=== PATIENT | female | born 1990 | race Caucasian/White ===

== ENCOUNTER 2018-11-14 01:11 | Emergency (ER) | payer SELFPAY ==
[2018-11-14 01:34] VITALS: BP 123/67; PULSE 89; TEMP 98.2; BMI 47.2
--- NOTE | 2018-11-14 02:34 | PDOC ---
History of Present Illness - General Chief Complaint: Vaginal Sxs Stated Complaint: VAGINAL BLEED/6WEEK Time Seen by Provider: 11/14/18 01:54 Past History - Past Medical History Allergies/Adverse Reactions: Allergies Allergy/AdvReac Type Severity Reaction Status Date / Time No Known Allergies Allergy Verified 03/07/13 13:25 Home Medications: Ambulatory Orders Amox-Tr/K Cl [Augmentin 875Mg Tablet] 1 tab PO BID #20 tablet 03/07/13 Ibuprofen [Motrin -] 600 mg PO TID #30 tablet 03/07/13 No Home Medications 0 dose .ROUTE UTDICT 03/07/13 - Suicide/Smoking/Psychosocial Hx Smoking Status: No Smoking History: Unknown if ever smoked Number of Cigarettes Smoked Daily: 0 Hx Alcohol Use: No Drug/Substance Use Hx: No *Physical Exam - Vital Signs Last Vital Signs Temp Pulse Resp BP Pulse Ox 98.2 F 89 20 123/67 100 11/14/18 01:25 11/14/18 01:25 11/14/18 01:25 11/14/18 01:25 11/14/18 01:25 Moderate Sedation - Procedure Monitoring Vital Signs: Procedure Monitoring Vital Signs Temperature 98.2 F 11/14/18 01:25 Pulse Rate 89 11/14/18 01:25 Respiratory Rate 20 11/14/18 01:25 Blood Pressure 123/67 11/14/18 01:25 O2 Sat by Pulse Oximetry (%) 100 11/14/18 01:25 *DC/Admit/Observation/Transfer - Referrals Referrals: Orville Shaffer MD [Primary Care Provider] - - Patient Instructions - Post Discharge Activity
--- NOTE | 2018-11-14 02:56 | PDOC ---
History of Present Illness <Sugar Bella - Last Filed: 11/14/18 04:22> - History of Present Illness Initial Comments: 11/14/18 02:49 Patient is a 28 y/o G2001 female with no medical history who presents for back pain. She states the pain began yesterday, it is mostly on her right side and radiates down her right leg. She has not taken any medication today to help with the pain. She also reports she has burning when she urinates and feels like she has to go more often. She also noticed blood on the tissue after she wiped. She does not see any blood in the toilet but only on the paper. Patients last was 12 years ago. She reports during that time she also had a kidney infection. Besides that the was uneventful. Patient denies fevers, chills, diarrhea, constipation, chest pain, or nausea. F/U trasnvaginal ultrasound, labs, and culture 11/14/18 04:09 US no abnormalities, Urine unlikely for infection, no kidney damage <Carlene Puga - Last Filed: 11/14/18 04:35> - General Chief Complaint: Vaginal Sxs Stated Complaint: VAGINAL BLEED/6WEEK Time Seen by Provider: 11/14/18 01:54 Past History <Sugar Bella - Last Filed: 11/14/18 04:22> - Suicide/Smoking/Psychosocial Hx Smoking Status: No Smoking History: Unknown if ever smoked Number of Cigarettes Smoked Daily: 0 Hx Alcohol Use: No Drug/Substance Use Hx: No <Carlene Puga - Last Filed: 11/14/18 04:35> - Past Medical History Allergies/Adverse Reactions: Allergies Allergy/AdvReac Type Severity Reaction Status Date / Time No Known Allergies Allergy Verified 11/14/18 04:23 Home Medications: Ambulatory Orders Ibuprofen [Motrin -] 600 mg PO TID #30 tablet 03/07/13 Review of Systems - Review of Systems Constitutional: No: Chills, Fever Respiratory: No: Cough, Shortness of Breath Cardiac (ROS): No: Chest Pain ABD/GI: No: Constipated, Diarrhea, Nausea, Vomiting : Yes: Burning, Dysuria, Hematuria Musculoskeletal: Yes: Back Pain <Carlene Puga - Last Filed: 11/14/18 04:35> *Physical Exam - Vital Signs Last Vital Signs Temp Pulse Resp BP Pulse Ox 98.2 F 89 20 123/67 100 11/14/18 01:25 11/14/18 01:25 11/14/18 01:25 11/14/18 01:25 11/14/18 01:25 <Sugar Bella - Last Filed: 11/14/18 04:22> - Vital Signs Last Vital Signs Temp Pulse Resp BP Pulse Ox 98.2 F 89 20 123/67 100 11/14/18 01:25 11/14/18 01:25 11/14/18 01:25 11/14/18 01:25 11/14/18 01:25 - Physical Exam Comments: 11/14/18 02:57 GENERAL: A&O x3, no acute distress HEART: RRR, no rubs murmurs or gallops LUNG: CTAL B/L GI: no abdominal tenderness, soft non distended MSK: positive CVA tenderness R side EXTREMITIES: no pitting edema NEURO: normal gait SKIN: no rashes or lesions noted <Carlene Puga - Last Filed: 11/14/18 04:35> Moderate Sedation - Procedure Monitoring Vital Signs: Procedure Monitoring Vital Signs Temperature 98.2 F 11/14/18 01:25 Pulse Rate 89 11/14/18 01:25 Respiratory Rate 20 11/14/18 01:25 Blood Pressure 123/67 11/14/18 01:25 O2 Sat by Pulse Oximetry (%) 100 11/14/18 01:25 <Sugar Bella - Last Filed: 11/14/18 04:22> - Procedure Monitoring Vital Signs: Procedure Monitoring Vital Signs Temperature 98.2 F 11/14/18 01:25 Pulse Rate 89 11/14/18 01:25 Respiratory Rate 20 11/14/18 01:25 Blood Pressure 123/67 11/14/18 01:25 O2 Sat by Pulse Oximetry (%) 100 11/14/18 01:25 <Carlene Puga - Last Filed: 11/14/18 04:35> ED Treatment Course - LABORATORY CBC & Chemistry Diagram: 11/14/18 02:44 11/14/18 02:44 - ADDITIONAL ORDERS Additional order review: Laboratory Results 11/14/18 11/14/18 11/14/18 02:49 02:44 02:44 Sodium 137 Potassium 3.6 Chloride 106 Carbon Dioxide 24 Anion Gap 7 L BUN 13 Creatinine 0.6 Creat Clearance w eGFR 119.04 Random Glucose 91 Calcium 8.3 L Total Bilirubin 0.3 AST 15 ALT 27 Alkaline Phosphatase 81 Total Protein 7.3 Albumin 3.7 Beta HCG, Quant 1767.7 Urine Color Straw Urine Appearance Clear Urine pH 7.0 Ur Specific [place] 1.009 L Urine Protein Negative Urine Glucose (UA) Negative Urine Ketones Negative Urine Blood Negative Urine Nitrite Negative Urine Bilirubin Negative Urine Urobilinogen Negative Ur Leukocyte Esterase Trace Urine WBC (Auto) 3 Urine RBC (Auto) <1 Ur Epithelial Cells Rare Blood Type A POSITIVE Antibody Screen Negative 11/14/18 02:44 RBC 4.67 MCV 82.5 MCHC 34.7 RDW 14.4 MPV 8.2 <Sugar Bella - Last Filed: 11/14/18 04:22> - LABORATORY CBC & Chemistry Diagram: 11/14/18 02:44 11/14/18 02:44 <Carlene Puga - Last Filed: 11/14/18 04:35> *DC/Admit/Observation/Transfer <Sugar Bella - Last Filed: 11/14/18 04:22> <Carlene Puga - Last Filed: 11/14/18 04:35> Diagnosis at time of Disposition: Early stage of , Type A blood, Rh positive Back pain Qualifiers: Back pain location: back pain in other location Chronicity: acute Qualified Code(s): M54.9 - Dorsalgia, unspecified - Discharge Dispostion Disposition: HOME Condition at time of disposition: Good - Referrals Referrals: Orville Shaffer MD [Primary Care Provider] - Sulma Carrillo MD [Staff Physician] - - Patient Instructions Additional Instructions: You came to the Emergency Department because of new back pain. We looked at your blood and did not find any problems with your hemoglobin ( red blood cells) , liver, or kidneys. We also had imaging of your uterus and it shows a and it does not show any abnormalities. Please make an appointment with your primary care physician and with a OBGYN. You can take tylenol or motrin for the pain. Do not exceed the maximum doses as stated on the bottle. Please return to the Emergency Department if you have any worsening of the pain , headache, dizziness, nausea, chest pain, or shortness of breath. - Post Discharge Activity
[2018-11-14 03:06] LABS: HEMATOCRIT 38.5 % (32.4-45.2); HEMOGLOBIN 13.4 GM/dL (10.7-15.3); MCH 28.6 pg (25.7-33.7); MCHC 34.7 g/dl (32.0-36.0); MEAN CELL VOLUME 82.5 fl (80-96); MEAN PLT VOLUME 8.2 fl (7.5-11.1); PLATELET COUNT 307 K/MM3 (134-434); RBC 4.67 M/mm3 (3.60-5.2); RDW 14.4 % (11.6-15.6); WHITE BLOOD COUNT 10.8 K/mm3 (4.0-10.0)
[2018-11-14 03:11] LABS: URINE APPEARANCE CLEAR; URINE BILIRUBIN NEGATIVE (<2.0 mg/dL); URINE COLOR STRAW; URINE GLUCOSE (UA) NEGATIVE (NEGATIVE); URINE KETONE NEGATIVE (NEGATIVE); URINE LEUK ESTERASE TRACE (NEGATIVE); URINE NITRITE NEGATIVE (NEGATIVE); URINE PROTEIN NEGATIVE (NEGATIVE); URINE UROBILINOGEN NEGATIVE mg/dL (0.2-1.0)
[2018-11-14 03:14] LABS: EPI CELLS RARE /HPF (FEW)
--- NOTE | 2018-11-14 03:44 | PDOC ---
Attending Attestation - Resident Resident Name: EddCarlene - ED Attending Attestation I have performed the following: I have examined & evaluated the patient, The case was reviewed & discussed with the resident, I agree w/resident's findings & plan - HPI HPI: 11/14/18 04:03 Pt comes with vag bleed that she noticed when she wiped after using the bathroom. And she complains of abd pain on the lower abd and she fears that she may have kidney stones. SHe is 6 weeks . Pt has a BOOKKEEPING CLERK across the street. 11/14/18 04:04 - Physicial Exam PE: 11/14/18 04:04 Agree with resident exam. 11/14/18 04:05 Pt has no flank pain and she has bilar lower abd pain and suprapubic pain. - Medical Decision Making 11/14/18 04:02 Patient Name: DARION TOWNSEND THIS IS A PRELIMINARY REPORT FROM [facility] DATE OF SERVICE: 2018-11-14 01:51:27 IMAGES: 75 EXAM: Ultrasound TRANSVAGINAL US PREG HISTORY: 6 weeks with vaginal bleeding COMPARISON: None. FINDINGS: Uterus measures 9.6 cm in length. There is a small intrauterine gestational sac. Mean sac diameter is 4 mm. anatomy and cardiac activity is not identified at this time. Cervix measures 4.2 cm in length and is closed. Ovaries appear normal IMPRESSION: Intrauterine gestational sac without visualized anatomy. This finding may be related to early gestational age and correlation with clinical dates and beta hCG levels is recommended. Follow-up to document normal anatomy and cardiac activity is recommended 11/14/18 04:06 Pt will be asked to follow with her BOOKKEEPING CLERK. She is RH she is stable for discharge.
[2018-11-14 03:59] LABS: ALBUMIN 3.7 g/dl (3.4-5.0); ALK PHOS 81 U/L (45-117); ANION GAP 7 MMOL/L (8-16); BILIRUBIN,TOTAL 0.3 mg/dL (0.2-1); BLOOD UREA NITROGEN 13 mg/dL (7-18); CALCIUM 8.3 mg/dL (8.5-10.1); CHLORIDE 106 mmol/L (98-107); CO2 24 mmol/L (21-32); CREATININE 0.6 mg/dL (0.55-1.3); GLUCOSE,RANDOM 91 mg/dL (74-106); POTASSIUM 3.6 mmol/L (3.5-5.1); SGOT/AST 15 U/L (15-37); SGPT/ALT 27 U/L (13-61); SODIUM 137 mmol/L (136-145); TOT PROT 7.3 g/dl (6.4-8.2)
== END 2018-11-14 04:27 | disposition home or self-care (01) ==
LOC: JER 01:11
DX: O26.891 Other specified pregnancy related conditions, first trimester (principal); M54.5 Low back pain; Z3A.01 Less than 8 weeks gestation of pregnancy; Z67.10 Type A blood, Rh positive
CPT/HCPCS: 36415; 76817-TC; 80053; 81003; 81015; 84702; 85027; 86850; 86900; 86901; 87086; 99282-25

== ENCOUNTER 2018-12-12 13:33 | Emergency (ER) | payer OTHER ==
[2018-12-12 13:41] VITALS: BP 116/60; PULSE 82; TEMP 98.4; BMI 47.8
[2018-12-12] MEDS ORDERED: ACETAMINOPHEN 325 MG TABLET (FP) PO ONE (13:54)
[2018-12-12] MEDS ORDERED: ACETAMINOPHEN 325 MG TABLET (FP) ONE (13:56)
--- NOTE | 2018-12-12 14:09 | PDOC ---
History of Present Illness - General Chief Complaint: Sore Throat Stated Complaint: SORE THROAT Time Seen by Provider: 12/12/18 13:44 History Source: Patient (flori X 4 days) Exam Limitations: No Limitations - History of Present Illness Associated Symptoms: denies: chest pain, cough, fever/chills, headaches, loss of appetite, malaise, nausea/vomiting, rash, shortness of breath, weakness Past History - Travel Traveled outside of the country in the last 30 days: No Close contact w/someone who was outside of country & ill: No - Past Medical History Allergies/Adverse Reactions: Allergies Allergy/AdvReac Type Severity Reaction Status Date / Time No Known Allergies Allergy Verified 12/12/18 13:41 Home Medications: Ambulatory Orders Amoxicillin - [Amoxicillin 500mg Capsule -] 500 mg PO BID 10 Days #20 capsule COPD: No - Reproductive History Therapeutic (s) & number: No - Immunization History Immunization Up to Date: Yes - Suicide/Smoking/Psychosocial Hx Smoking Status: No Smoking History: Never smoked Number of Cigarettes Smoked Daily: 0 Hx Alcohol Use: No Drug/Substance Use Hx: No Review of Systems - Review of Systems Is the patient limited Greek proficient: No Constitutional: No: Chills, Fever HEENTM: Yes: Ear Pain, Throat Pain. No: Ear Discharge, Nose Pain, Nose Congestion, Tinnitus, Hearing Loss, Throat Swelling Respiratory: No: Cough, Shortness of Breath, Productive cough ABD/GI: No: Abdominal Distended, Nausea, Vomiting Neurological: No: Headache *Physical Exam - Vital Signs Last Vital Signs Temp Pulse Resp BP Pulse Ox 98.4 F 82 18 116/60 97 12/12/18 13:38 12/12/18 13:38 12/12/18 13:38 12/12/18 13:38 12/12/18 13:38 - Physical Exam General Appearance: Yes: Nourished HEENT: positive: EOMI, JUVENAL, TMs Normal, Tonsillar Exudate, Tonsillar Erythema ( no DETAIL DRAFTER.). negative: Excessive drooling Respiratory/Chest: positive: Lungs Clear, Normal Breath Sounds Cardiovascular: positive: Regular Rhythm, Regular Rate, S1, S2 Neurologic: positive: metal trimmer II-XII NML intact, Fully Oriented ED Treatment Course - Medications Given in the ED: ED Medications Discontinued Medications Generic Name Dose Route Start Last Admin Trade Name Freq PRN Reason Stop Dose Admin Acetaminophen 650 mg 12/12/18 13:54 12/12/18 13:58 Tylenol - PO 12/12/18 13:55 650 mg ONCE ONE Administration Medical Decision Making - Medical Decision Making 12/12/18 14:08 28y/o F 12wks p/w sorethroat X 4 days, denies cough, f/c, voice hoarseness and drooling. She Reports son had strep a week ago. Pt had no other complaints of abd pain or vag bleed RS sent and pending RS positive abx sent to pharmacy *DC/Admit/Observation/Transfer Diagnosis at time of Disposition: Strep pharyngitis - Discharge Dispostion Disposition: HOME Condition at time of disposition: Stable Decision to Admit order: No - Prescriptions Prescriptions: Amoxicillin - [Amoxicillin 500mg Capsule -] 500 mg PO BID 10 Days #20 capsule - Referrals - Patient Instructions Printed Discharge Instructions: DI for Strep Throat Additional Instructions: Your throat culture was positive for strep Please take antibiotics as prescribed Take tylenol for pain, gargle with salt water Please return to the ER if worsening pain or swelling despite antibiotics. - Post Discharge Activity
== END 2018-12-12 15:05 | disposition home or self-care (01) ==
LOC: JERFT 13:33
DX: O26.891 Other specified pregnancy related conditions, first trimester (principal); O98.811 Other maternal infectious and parasitic diseases complicating pregnancy, first trimester; J02.0 Streptococcal pharyngitis; B95.0 Streptococcus, group A, as the cause of diseases classified elsewhere; Z3A.12 12 weeks gestation of pregnancy
CPT/HCPCS: 87880; 99281-25

== ENCOUNTER 2019-07-03 12:11 | Emergency (ER) | payer OTHER ==
[2019-07-03 12:27] VITALS: BMI 47.8
--- NOTE | 2019-07-03 12:58 | PDOC ---
History of Present Illness - General Chief Complaint: Headache Stated Complaint: 38 WEEKS , HEADACHE, FACE SORE Time Seen by Provider: 07/03/19 12:53 History Source: Patient Exam Limitations: No Limitations Past History - Travel Traveled outside of the country in the last 30 days: No Close contact w/someone who was outside of country & ill: No - Past Medical History Allergies/Adverse Reactions: Allergies Allergy/AdvReac Type Severity Reaction Status Date / Time No Known Allergies Allergy Verified 05/03/19 19:39 Home Medications: Ambulatory Orders Vitamins (Sjr) - 1 tab PO DAILY 05/03/19 Cephalexin Monohydrate [Keflex -] 500 mg PO BID #14 capsule 07/03/19 COPD: No - Reproductive History Therapeutic (s) & number: No - Immunization History Immunization Up to Date: Yes - Psycho Social/Smoking Cessation Hx Smoking Status: No Smoking History: Never smoked Number of Cigarettes Smoked Daily: 0 Hx Alcohol Use: No Drug/Substance Use Hx: No Review of Systems - Review of Systems Able to Perform ROS?: Yes Comments:: 07/03/19 15:18 CONSTITUTIONAL: Absent: fever, chills, diaphoresis, generalized weakness, malaise, loss of appetite HEENT: Absent: rhinorrhea, nasal congestion, throat pain, throat swelling, difficulty swallowing, mouth swelling, ear pain, eye pain, visual Changes CARDIOVASCULAR: Absent: chest pain, loss of consciousness, palpitations, irregular heart rate, peripheral edema RESPIRATORY: Absent: cough, shortness of breath, dyspnea with exertion, orthopnea, wheezing, stridor, hemoptysis GASTROINTESTINAL: Absent: abdominal pain, abdominal distension, nausea, vomiting, diarrhea, constipation, melena, hematochezia GENITOURINARY: Absent: dysuria, frequency, urgency, hesitancy, hematuria, flank pain, genital pain MUSCULOSKELETAL: Absent: myalgia, arthralgia, joint swelling SKIN: Absent: rash, itching, pallor HEMATOLOGIC/IMMUNOLOGIC: Absent: easy bleeding, easy bruising, lymphadenopathy, frequent infections ENDOCRINE: Absent: unexplained weight gain, unexplained weight loss, heat intolerance, cold intolerance NEUROLOGIC: Present: headache Absent: focal weakness or paresthesias, dizziness, unsteady gait, seizure, mental status changes, bladder or bowel incontinence PSYCHIATRIC: Absent: anxiety, depression, suicidal or homicidal ideation, hallucinations. Is the patient limited Slovak proficient: No *Physical Exam - Vital Signs Last Vital Signs Temp Pulse Resp BP Pulse Ox 98 F 83 20 115/76 99 07/03/19 12:21 07/03/19 12:21 07/03/19 12:21 07/03/19 12:21 07/03/19 12:21 - Physical Exam Comments: 07/03/19 15:19 GENERAL: Well developed, well nourished. Awake and alert. No acute distress. HEENT: Normocephalic, atraumatic. PERRLA, EOMI. No conjunctival pallor. Sclera are non- icteric. Moist mucous membranes. Oropharynx is clear. NECK: Supple. Full ROM. No JVD. Carotid pulses 2+ and symmetric, without bruits. No thyromegaly. No lymphadenopathy. CARDIOVASCULAR: Regular rate and rhythm. No murmurs, rubs, or gallops. Distal pulses are 2+ and symmetric. PULMONARY: No evidence of respiratory distress. Lungs clear to auscultation bilaterally. No wheezing, rales or rhonchi. ABDOMINAL: Soft. Non-tender. Non-distended. No rebound or guarding. No organomegaly. Normoactive bowel sounds. MUSCULOSKELETAL Normal range of motion at all joints. No bony deformities or tenderness. No CVA tenderness. EXTREMITIES: No cyanosis. No clubbing. No edema. No calf tenderness. SKIN: Warm and dry. Normal capillary refill. No rashes. No jaundice. NEUROLOGICAL: Alert, awake, appropriate. Cranial nerves 2-12 intact. No deficits to light touch and temperature in face, upper extremities and lower extremities. No motor deficits in the in face, upper extremities and lower extremities. Normoreflexic in the upper and lower extremities. Normal speech. Toes are down- going bilaterally. Gait is normal without ataxia. PSYCHIATRIC: Cooperative. Good eye contact. Appropriate mood and affect. ED Treatment Course - LABORATORY CBC & Chemistry Diagram: 07/03/19 13:00 07/03/19 13:00 Medical Decision Making - Medical Decision Making 07/03/19 15:19 Patient is a 29-year-old female with no past medical history, G2, P1, currently 38 weeks presents to the ER today for headache since . She states that the headache started gradually and got worse. She has been taking Tylenol every 6 hours as directed for pain. She states the headache got better yesterday however it came back this morning so she came to the ER for evaluation. She also notes that her face feels sore, she has mild dizziness and she has lower back pain. Denies fevers, chills, gait changes, weakness, bladder/bowel incontinence, saddle anesthesia, blurry vision, vomiting. A/P: Headache On exam patient is large likely intact with no focal findings. Blood pressure 117/70, LFTs and platelets within normal limits. No edema noted. No protein in the urine. Reglan, IV Tylenol, fluids and magnesium given with relief of symptoms Urine is notable for infection at this time. We will treat with Rocephin. Patient reports headache is completely gone after medication. Will send up to L &D for monitoring. OBGYN: Lizabeth Chacko Discharge - Discharge Information Problems reviewed: Yes Clinical Impression/Diagnosis: Headache Qualifiers: Headache type: unspecified Headache chronicity pattern: acute headache Intractability: not intractable Qualified Code(s): R51 - Headache Condition: Stable Disposition: HOME - Admission No - Follow up/Referral Referrals: Lizabeth Chacko CNM [Certified Nurse Glue Cook] - - Patient Discharge Instructions Patient Printed Discharge Instructions: DI for Headache Additional Instructions: You were evaluated for your headache today Please take Tylenol 500 mg every 6 hours as needed for headache if it recurs. Please take the Keflex twice a day for 1 week for your urinary tract infection. Please follow-up with your DRIFT MINER this week. Drink plenty of fluids Return to the ER for any new or worsening symptoms peer - Post Discharge Activity
[2019-07-03] MEDS ORDERED: SODIUM CHLORIDE 1,000 ML IV STA (12:59)
[2019-07-03] MEDS ORDERED: METOCLOPRAMIDE HCL INJECTION 10 MG/2 ML VIAL IVPB ONE (12:59)
[2019-07-03] MEDS ORDERED: METOCLOPRAMIDE HCL INJECTION 10 MG/2 ML VIAL ONE (13:06)
[2019-07-03 13:11] LABS: BASO % 0.4 % (0-2.0); EOS % 5.6 % (0-4.5); HEMATOCRIT 31.2 % (32.4-45.2); HEMOGLOBIN 10.5 GM/dL (10.7-15.3); LYMPH % 21.9 % (8-40); MCH 23.5 pg (25.7-33.7); MCHC 33.5 g/dl (32.0-36.0); MEAN CELL VOLUME 70.1 fl (80-96); MEAN PLT VOLUME 7.8 fl (7.5-11.1); MONO % 4.1 % (3.8-10.2); PLATELET COUNT 310 K/MM3 (134-434); RBC 4.46 M/mm3 (3.60-5.2); WHITE BLOOD COUNT 9.6 K/mm3 (4.0-10.0)
[2019-07-03 13:36] LABS: ALBUMIN 2.5 g/dl (3.4-5.0); BILIRUBIN,TOTAL 0.2 mg/dL (0.2-1); BLOOD UREA NITROGEN 4.3 mg/dL (7-18); CALCIUM 8.3 mg/dL (8.5-10.1); CREATININE 0.5 mg/dL (0.55-1.3); TOT PROT 6.1 g/dl (6.4-8.2)
[2019-07-03 14:22] LABS: EPI CELLS 8.4 /HPF (0-5/HPF); HYALINE CASTS 4 /lpf (0-8); URINE APPEARANCE CLOUDY; URINE BACTERIA 311.9 /hpf (NEGATIVE); URINE BILIRUBIN NEGATIVE (NEGATIVE); URINE COLOR YELLOW; URINE GLUCOSE (UA) NEGATIVE (NEGATIVE); URINE KETONE NEGATIVE (NEGATIVE); URINE LEUK ESTERASE 3+ (NEGATIVE); URINE NITRITE NEGATIVE (NEGATIVE); URINE PROTEIN NEGATIVE (NEGATIVE); URINE RBC 3 /hpf (0-4); URINE UROBILINOGEN 0.2 mg/dL (0.2-1.0); URINE WBC 34 /hpf (0-5)
[2019-07-03] MEDS ORDERED: ACETAMINOPHEN 1000 MG/100 ML VIAL (NON FORMULARY) IVPB ONE (14:23)
[2019-07-03] MEDS ORDERED: CEFTRIAXONE 1 GM in DEXTROSE 5%-WATER - 100 ML IVPB ONE (14:23)
[2019-07-03] MEDS ORDERED: MAGNESIUM SULF 50% (8.12 MEQ/2 ML-1 GM VIAL) IVPB ONE (14:23)
[2019-07-03] MEDS ORDERED: SODIUM CHLORIDE 0.9% 1000 ML INFUS.BAG IV ONE (14:25)
[2019-07-03] MEDS ORDERED: MAGNESIUM 1GM/D5W - 1 GM/100 ML IVPB IVPB ONE (14:34)
[2019-07-03] MEDS ORDERED: CEFTRIAXONE 1 GM/50 ML BAG ONE (14:34)
[2019-07-03] MEDS ORDERED: ACETAMINOPHEN INJECTION 100 ML IVPB ONE (14:34)
[2019-07-03 16:31] VITALS: BP 131/67; PULSE 65; TEMP 98.4
== END 2019-07-03 16:55 | disposition home or self-care (01) ==
LOC: JER 12:11
PROC: 3E03329 Introduction of Other Anti-infective into Peripheral Vein, Percutaneous Approach (ICD-10-PCS; principal; 2019-07-03)
PROC: 3E033GC Introduction of Other Therapeutic Substance into Peripheral Vein, Percutaneous Approach (ICD-10-PCS; 2019-07-03)
PROC: 3E033GC Introduction of Other Therapeutic Substance into Peripheral Vein, Percutaneous Approach (ICD-10-PCS; 2019-07-03)
PROC: 3E033NZ Introduction of Analgesics, Hypnotics, Sedatives into Peripheral Vein, Percutaneous Approach (ICD-10-PCS; 2019-07-03)
DX: O26.893 Other specified pregnancy related conditions, third trimester (principal); O23.43 Unspecified infection of urinary tract in pregnancy, third trimester; R51 Headache; Z3A.38 38 weeks gestation of pregnancy
CPT/HCPCS: 36415; 76815; 80053; 81003; 85025; 87086; 96365; 96375; 99283-25; J0131; J7030

== ENCOUNTER 2019-07-13 10:05 | Inpatient (IN) | payer OTHER ==
[2019-07-13] MEDS ORDERED: BUTORPHANOL TARTRATE 1 MG/ML VIAL IVPB ONE (10:54)
[2019-07-13] MEDS: ELECTROLYTE-148 SOLN 1,000 ML IV SCH ×2 (10:55→19:30)
[2019-07-13] MEDS ORDERED: AMPICILLIN - 2 GM in SODIUM CHLORIDE 100 ML IVPB ONE (10:56)
--- NOTE | 2019-07-13 11:03 | HP ---
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: Alzheimer's, CVA, Dementia, Migraine, Multiple Sclerosis, Peripheral Neuropathy, Parkinson's, Seizure, Syncope, TIA, Vertigo, Other Cardiovascular: No: AFIB, Aneurysm, Aortic Insufficiency, Aortic Stenosis, CAD, CHF, Deep Vein Thrombosis, HTN, Hyperlipdemia, SD, Mitral Insufficiency, Mitral Stenosis, Murmur, Pulmonary Hypertension, Other Pulmonary: No: Asthma, Bronchitis, Cancer, COPD, O2 Dependent, Pneumonia, Previously Intubated, Pulmonary Embolus, Pulmonary Fibrosis, Sleep Apnea, Other Gastrointestinal: No: Ascites, Cancer, Constipation, Crohn's Disease, Diverticulitis, Diverticulosis, Esophageal Varices, Gastritis, GERD, GI Bleed, Hemorrhoids, Hiatal Hernia, Inflamatory Bowel Disease, Irritable Bowel Disease, Pancreatitis, Peptic Ulcer Disease, Ulcerative Colitis, Other Hepatobiliary: No: Cirrhosis, Cholelithiasis, Cholecystitis, Choledocholithiasis , Hepatitis A, Hepatitis B, Hepatitis C, Other Renal/: No: Renal Failure, Renal Inusuff, BPH, Cancer, Hematuria, Hemodialysis , Neurogenic Bladder, Renal Calculi, UTI, Other Reproductive: No: Ectopic , Endometriosis, Fibroids, PID, Polycystic Ovary Syndrome, Postmenopausal, Other ...: 2 ...Para: 1 Heme/Onc: No: Anemia, B12 Deficiency, Bleeding Disorder, Cancer, Current Chemotherapy, Current Radiation Therapy, Hemochromatosis, Hypercoaguable State, Myeloproliferative Synd, Sickle Cell Disease, Sickle Cell Trait, Thrombocytopenia, Other Infectious Disease: No: AIDS, C-Diff, Herpes Zoster, HIV, MRSA, STD's, Tuberculosis, VREF, Other Psych: No: Addictions, Anxiety, Bipolar, Depression, Panic, Psychosis, Schizophrenia, Other Musculoskeletal: No: Bursitis, Chronic low back pain, Hemiparesis, Hemiplegia, Osteoarthritis, Paraplegia, Other Rheumatology: No: Fibromyalgia, Gout, Lupus, Rheumatoid Arthritis, Sarcoidosis, Vasculitis, Other ENT: No: Allergic Rhinitis, Sinusitis, Other Endocrine: No: [place]'s Disease, Conchita's Disease, Diabetes Insipidus, Diabetes Mellitus, Hyperparathyroidism, Hyperthyroidism, Hypothyroidism, Osteopenia, SIADH, Other Dermatology: No: Basal Cell, Cellulitis, Eczema, Melanoma, Psoriasis, Squamous Cell, Other - Past Surgical History Past Surgical History: No: None, AAA Repair, AICD, Amputation, Appendectomy, Arthrosocopy, AV Fistula/Graft, Bariatric Surgery, Breast Biopsy, Bypass, CABG, Carotid Endarterectomy, Cataract Removal, Cholecystectomy, Colectomy, Colonoscopy, Colostomy, Craniotomy, , Cystectomy, Hernia Repair, Hysterectomy, Ileal Conduit, Ileosotomy, Joint Replacement, Kidney Transplant, Laminectomy, Liver Transplant, Mastectomy, Nephrectomy, Oopherectomy, Orchiectomy, Permanent Pacemaker, Prostatectomy, Splenectomy, Stent, Thoracotomy , TURP, Tonsillectomy, Tubal Ligation, Upper Endoscopy, Valve Replacement, Vasectomy, Vein Stripping/Ligation Hx Myomectomy: No Hx Transabdominal Cerclage: No - Smoking History Smoking history: Never smoked Aproximately how many cigarettes per day: 0 - Alcohol/Substance Use Hx Alcohol Use: No History of Substance Use: reports: None - Social History History of Recent Travel: No Home Medications - Allergies Allergies/Adverse Reactions: Allergies Allergy/AdvReac Type Severity Reaction Status Date / Time No Known Allergies Allergy Verified 07/11/19 22:37 - Home Medications Home Medications: Ambulatory Orders Vitamins (Sjr) - 1 tab PO DAILY 05/03/19 Family Medical History Family History: Unremarkable Review of Systems - Review of Systems Constitutional: reports: No Symptoms Eyes: reports: No Symptoms HENT: reports: No Symptoms Neck: reports: No Symptoms Cardiovascular: reports: No Symptoms Respiratory: reports: No Symptoms Gastrointestinal: reports: No Symptoms Genitourinary: reports: No Symptoms Breasts: reports: No Symptoms Reported Musculoskeletal: reports: No Symptoms Integumentary: reports: No Symptoms Neurological: reports: No Symptoms Endocrine: reports: No Symptoms Hematology/Lymphatic: reports: No Symptoms Psychiatric: reports: No Symptoms Physical Exam - Maternity Vital Signs: As reported Constitutional: Yes: Calm HENT: Yes: Atraumatic Neck: Yes: Supple Cardiovascular: Yes: Regular Rate and Rhythm Breast(s): Yes: Other (deferred) - Abdominal Exam/OB Number of Fetuses: Single Presentation: Vertex Contractions: Yes Regularity: Regular Intensity: Moderate Monitor Mode: External Heart Rate (range): 125 Category: I Accelerations: Uniform Decelerations: None - Vaginal Exam/OB Vaginal Bleediing: No Speculum Exam: No (normal external genitalia and small folliculitus on right labial majora) Dilatation (cm): 5 Effacement (%): 60 Amniotic Membrane Status: Bulging Presentation: Vertex/Position Station: -3 - Physical Exam Musculoskeletal: Yes: WNL Extremities: Yes: WNL Edema: Yes Edema: LLE: Trace, RLE: Trace Integumentary: Yes: WNL Deep Tendon Reflex Grade: Normal +2 ...Motor Strength: WNL Psychiatric: Yes: Alert, Oriented - Labs Lab Results: ordered Imaging - Results Ultrasound: Report Reviewed Assessment/Plan 29 y/o @ 39.4wks, active labor, GBS +, reassuring status and stable maternal condition, EFW as per sono on -GBS prophylaxis -Expectant management -Continuous monitoring
[2019-07-13 11:43] LABS: BASO % 0.4 % (0-2.0); EOS % 6.3 % (0-4.5); HEMATOCRIT 32.2 % (32.4-45.2); HEMOGLOBIN 10.4 GM/dL (10.7-15.3); MCH 22.3 pg (25.7-33.7); MCHC 32.2 g/dl (32.0-36.0); MEAN CELL VOLUME 69.2 fl (80-96); MEAN PLT VOLUME 7.9 fl (7.5-11.1); MONO % 4.6 % (3.8-10.2); NEUT % 64.7 % (42.8-82.8); PLATELET COUNT 349 K/MM3 (134-434); RBC 4.65 M/mm3 (3.60-5.2); RDW 16.4 % (11.6-15.6); WHITE BLOOD COUNT 9.4 K/mm3 (4.0-10.0)
[2019-07-13 11:52] VITALS: BMI 48.0
[2019-07-13 12:16] LABS: BLOOD UREA NITROGEN 6.4 mg/dL (7-18); CALCIUM 8.2 mg/dL (8.5-10.1); CREATININE 0.6 mg/dL (0.55-1.3)
[2019-07-13] MEDS ORDERED: BUTORPHANOL TARTRATE 1 MG/ML VIAL ONE (13:18)
--- NOTE | 2019-07-13 13:52 | PN ---
Ante-Partal Exam - Subjective Subjective: Patient requesting pain control Vital Signs: Vital Signs Temperature 97.6 F 07/13/19 12:00 Pulse Rate 64 07/13/19 13:00 Respiratory Rate 18 07/13/19 13:00 Blood Pressure 132/69 07/13/19 13:00 O2 Sat by Pulse Oximetry (%) Headache: No Visual changes: No Right upper quadrant pain: No - Contractions Contractions: Yes Regularity: Regular (q4mins) Intensity: Mod/Strong Monitor Mode: External - Exam during Labor Heart Rate: 130 Variability: Moderate Category: I Monitor Accelerations: Present Monitor Decelerations: None Exam: Vaginal Dilatation (cm): 5 Effacement (%): 60 Amniotic Membrane Status: Intact Presentation: Vertex (asynclitic) Station: -3 - Assessment/Plan Assessment/Plan: 29 y/o @ 39.4wks, active labor, reassuring status, GBS + on prophylaxis, desiring IV pain control -Stadol -Continuous monitoring -Initiate active management 4hours post Abx administration.
[2019-07-13] MEDS ORDERED: AMPICILLIN SODIUM 1 GM VIAL ONE ×2 (14:20→18:26)
[2019-07-13] MEDS: AMPICILLIN - 1 GM in SODIUM CHLORIDE 100 ML IVPB SCH ×2 (14:27→18:31)
[2019-07-13] MEDS ORDERED: OXYTOCIN 20 UNITS in 0.9% NS 20 UNIT/1,000 ML INFUS.BAG IV ONE (14:56)
--- NOTE | 2019-07-13 14:58 | PN ---
Progress Note, Labor Vaginal Exam #2 Labor Exam Date: 07/13/19 Labor Exam Time: 14:57 Heart Rate (range): Cat I Dilatation: 7 Effacement (%): 80 Amniotic Membrane Status: Ruptured Presentation: Vertex/Position Station: -2 Remarks: Pt comfortable AROM, clears Anticipate Kelvin Carrillo MD
[2019-07-13] MEDS ORDERED: OXYTOCIN 30 UNITS in 0.9% NS 30 UNIT/500 ML INFUS.BAG IVPB SCH (15:00)
--- NOTE | 2019-07-13 17:31 | PN ---
Progress Note, Labor Vaginal Exam #3 Labor Exam Date: 07/13/19 Labor Exam Time: 17:30 Heart Rate (range): Cat I Dilatation: 8 Effacement (%): 100 Amniotic Membrane Status: Ruptured Presentation: Vertex/Position Station: -2 Remarks: Pt requesting epidural Appears comfortable with contractions, no pressure yet Exam unchanged, after discussion, declined epidural at this time Will cont to monitor Kelvin Carrillo MD
--- NOTE | 2019-07-13 19:05 | PN ---
Progress Note, Labor Vaginal Exam #4 Labor Exam Date: 07/13/19 Labor Exam Time: 19:04 Heart Rate (range): Cat I Dilatation: 8 Effacement (%): 80 Amniotic Membrane Status: Ruptured Presentation: Vertex/Position Station: -1 Remarks: Pt requesting epidural No cervical change still Will give additional 2 hours and reassess for progress Kelvin Carrillo MD
[2019-07-13] MEDS ORDERED: FENTANYL/BUPIVACAINE/NS/PF - PCEA - 50 ML DISP.SYRIN EP ONE (19:13)
[2019-07-13] MEDS ORDERED: NALOXONE HCL 0.4 MG/ML VIAL IVPUSH PRN (19:36)
[2019-07-13] MEDS ORDERED: FENTANYL/BUPIVACAINE/NS/PF - PCEA - 50 ML DISP.SYRIN EP SCH (19:45)
[2019-07-13] MEDS ORDERED: BISACODYL 10 MG SUPP.RECT RC PRN (20:58)
[2019-07-13] MEDS ORDERED: BENZOCAINE 20% 57 GM BOTTLE TP PRN (20:58)
[2019-07-13] MEDS ORDERED: METHYLERGONOVINE MALEATE 0.2 MG/1 ML AMP IM PRN (20:58)
[2019-07-13] MEDS ORDERED: WITCH HAZEL 50% (TUCKS) 40 PAD/JAR PAD TP PRN (20:58)
[2019-07-13] MEDS ORDERED: BENZOCAINE 28 GM HEMORRHOIDAL OINTMENT TP PRN (20:58)
--- NOTE | 2019-07-13 20:58 | PN ---
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 Nuchal x 2, delivered through. No meconium. Epidural anesthesia. 39 week . Spontaneous delivery of anterior shoulder and body. Placed on maternal abdomen. Cord clamped and cut. Weight pending to allow sufficient skin to skin. Apgars 9/9. Spontaneous delivery of intact placenta, 3VC. Perineum inspected, first degree laceration repaired with 2-0 chromic. Hemostasis noted. Mother and baby doing well. EBL 250ml. Sulma Carrillo MD
[2019-07-13] MEDS ORDERED: OXYTOCIN 20 UNITS in 0.9% NS 20 UNIT/1,000 ML INFUS.BAG IV SCH (21:00)
[2019-07-14 07:47] LABS: HEMOGLOBIN 9.1 GM/dL (10.7-15.3); RBC 4.22 M/mm3 (3.60-5.2); WHITE BLOOD COUNT 12.6 K/mm3 (4.0-10.0)
[2019-07-14 07:48] LABS: BASO % 0.1 % (0-2.0); EOS % 0.5 % (0-4.5); HEMATOCRIT 29.1 % (32.4-45.2); MCH 21.7 pg (25.7-33.7); MCHC 31.5 g/dl (32.0-36.0); MEAN CELL VOLUME 68.9 fl (80-96); MEAN PLT VOLUME 8.2 fl (7.5-11.1); MONO % 4.6 % (3.8-10.2); NEUT % 76.8 % (42.8-82.8); PLATELET COUNT 285 K/MM3 (134-434); RDW 16.6 % (11.6-15.6)
--- NOTE | 2019-07-14 08:53 | PN ---
Post Progress Note - Subjective Subjective: Pain controlled. Ambulating w/o difficulty. Lochia c/w menses Type of Delivery: Vital Signs: Vital Signs Temperature 97.4 F L 07/14/19 07:40 Pulse Rate 80 07/14/19 07:40 Respiratory Rate 18 07/14/19 07:40 Blood Pressure 132/70 07/14/19 07:40 O2 Sat by Pulse Oximetry (%) 100 07/13/19 21:55 Uterus: Yes: Fundus below umbilicus Abdomen/GI: Yes: Abdomen soft, Passing flatus, Tolerating PO Lochia: Yes: Rubra Lochia, amount: Small Extremities: Yes: Calves non-tender Perineum: Yes: Laceration Activity: Ambulating - Labs Labs: CBC WBC 12.6 K/mm3 (4.0-10.0) H 07/14/19 07:05 RBC 4.22 M/mm3 (3.60-5.2) 07/14/19 07:05 Hgb 9.1 GM/dL (10.7-15.3) L 07/14/19 07:05 Hct 29.1 % (32.4-45.2) L 07/14/19 07:05 MCV 68.9 fl (80-96) L 07/14/19 07:05 MCH 21.7 pg (25.7-33.7) L 07/14/19 07:05 MCHC 31.5 g/dl (32.0-36.0) L 07/14/19 07:05 RDW 16.6 % (11.6-15.6) H 07/14/19 07:05 Plt Count 285 K/MM3 (134-434) 07/14/19 07:05 MPV 8.2 fl (7.5-11.1) 07/14/19 07:05 Absolute Neuts (auto) 9.6 K/mm3 (1.5-8.0) H 07/14/19 07:05 Neutrophils % 76.8 % (42.8-82.8) 07/14/19 07:05 Lymphocytes % 18.0 % (8-40) D 07/14/19 07:05 Monocytes % 4.6 % (3.8-10.2) 07/14/19 07:05 Eosinophils % 0.5 % (0-4.5) D 07/14/19 07:05 Basophils % 0.1 % (0-2.0) 07/14/19 07:05 Nucleated RBC % 0 % (0-0) 07/14/19 07:05 Assessment/Plan [id number] s/p , PPD#1 Routine PP care PO pain control AM labs reviewed D/C to home PPD#2 Kelvin Carrillo MD
[2019-07-14] MEDS: PRENATAL VITAMINS W/ FOLIC ACID TABLET (FP) PO SCH (10:16)
[2019-07-14] MEDS: ACETAMINOPHEN 325 MG TABLET (FP) PO PRN ×2 (10:18→17:29)
[2019-07-14] MEDS: IBUPROFEN 600 MG TABLET (FP) PO PRN ×2 (10:18→17:28)
[2019-07-14 11:15] LABS: ANISOCYTOSIS 1+; PLATELET ESTIMATE NORMAL
[2019-07-14] MEDS ORDERED: SENNOSIDES/DOCUSATE COMBO (SENNA PLUS) TABLET (UD) PO PRN (22:00)
[2019-07-15] MEDS: ACETAMINOPHEN 325 MG TABLET (FP) PO PRN (01:29)
[2019-07-15] MEDS: IBUPROFEN 600 MG TABLET (FP) PO PRN (01:29)
--- NOTE | 2019-07-15 07:01 | DS ---
Physical Exam-MANAGER PACU Vital Signs: Vital Signs Temperature 97.8 F 07/14/19 22:00 Pulse Rate 79 07/14/19 22:00 Respiratory Rate 18 07/14/19 22:00 Blood Pressure 119/59 L 07/14/19 22:00 O2 Sat by Pulse Oximetry (%) 100 07/13/19 21:55 Constitutional: Yes: Well Nourished, No Distress, Calm Eyes: Yes: WNL, Conjunctiva Clear, EOM Intact HENT: Yes: WNL, Atraumatic, Normocephalic Neck: Yes: WNL, Supple, Trachea Midline Cardiovascular: Yes: WNL, Regular Rate and Rhythm Respiratory: Yes: WNL, Regular, CTA Bilaterally Gastrointestinal: Yes: WNL ...Rectal Exam: Yes: WNL Renal/: Yes: WNL ....Post : Yes: Uterus firm, Uterus non-tender, Slight lochia rubra Breast(s): Yes: WNL Musculoskeletal: Yes: WNL Extremities: Yes: WNL Edema: No Integumentary: Yes: WNL Neurological: Yes: WNL, Alert, Oriented ...Motor Strength: WNL Psychiatric: Yes: WNL, Alert, Oriented Labs: CBC, BMP 07/14/19 07:05 07/13/19 11:26 Delivery - Delivery Vaginal Delivery: Spontaneous Type of Anesthesia: Epidural Episiotomy/Laceration: Midline, 1st degree EBL (cc): 250 Delivery, Single - Stages of Labor Date 1st Stage Initiatied: 07/13/19 Time 1st Stage Initiated: 06:00 Date 2nd Stage Initiated: 07/13/19 Time 2nd Stage Initiated: 20:35 Date of Delivery: 07/13/19 Time of Delivery: 20:46 Time Placenta Delivered: 20:50 Placenta: Yes: Spontaneous - Condition of Regional Transfer Liaison/Workers Compensation Attorney Present: No Infant Gender: Male Weight: 7 lb 12 oz Position: Left, OA Total Hours ROM (Hrs/Mins): 6hrs - 1 Minute Total Score: 9 5 Minutes Total Score: 9 - [place] Feeding Plan Initial Plan: Elected not to breastfeed exclusively throughout hospitalization Discharge Summary Reason For Visit: LABOR ADMISSION Procedures: Principal: Hospital Course: no complication Condition: Stable - Instructions Diet, Activity, Other Instructions: Regular Diet Follow up in 2 weeks for your visit Referrals: Sulma Carrillo MD [Staff Physician] - Disposition: HOME - Home Medications Comprehensive Discharge Medication List: Ambulatory Orders Vitamins (Sjr) - 1 tab PO DAILY 05/03/19 Ferrous Sulfate [Feosol] 325 mg PO DAILY #30 tablet 07/14/19 Ibuprofen 600 mg PO Q6H PRN #30 tablet 07/14/19
[2019-07-15] MEDS: PRENATAL VITAMINS W/ FOLIC ACID TABLET (FP) PO SCH (09:25)
[2019-07-15 12:02] VITALS: BP 110/71; PULSE 70; TEMP 97.9
== END 2019-07-15 11:55 | disposition home or self-care (01) | DRG 560 ==
LOC: JDEL 10:05 → JLDR 10:40 → J3W 22:18
PROVIDERS: ADMIT Student in an Organized Health Care Education/Training Program; ATTEND Student in an Organized Health Care Education/Training Program
PROC: 0HQ9XZZ Repair Perineum Skin, External Approach (ICD-10-PCS; principal; 2019-07-13)
PROC: 10E0XZZ Delivery of Products of Conception, External Approach (ICD-10-PCS; 2019-07-13)
PROC: 10907ZC Drainage of Amniotic Fluid, Therapeutic from Products of Conception, Via Natural or Artificial Opening (ICD-10-PCS; 2019-07-13)
DX: O99.824 Streptococcus B carrier state complicating childbirth (principal); O70.0 First degree perineal laceration during delivery; O69.81X0 Labor and delivery complicated by cord around neck, without compression, not applicable or unspecified; Z3A.39 39 weeks gestation of pregnancy; Z37.0 Single live birth
CPT/HCPCS: 36415; 59409; 80048; 85025; 86593; 86850; 86900; 86901

== ENCOUNTER 2019-07-16 23:26 | Inpatient (IN) | payer OTHER ==
[2019-07-16] MEDS ORDERED: ALBUTEROL SO4 2.5/IPRATROPIUM 0.5 INH SOL 3 ML VIAL.NEB. NEB ONE (23:33)
--- NOTE | 2019-07-16 23:42 | PDOC ---
History of Present Illness - General Chief Complaint: Respiratory Stated Complaint: chest pain - History of Present Illness Initial Comments: The pt is a 29F , 3 days post- presents for 1 day of shortness of breath and wheezing w/ associated BLE swelling since delivery. She reports wheezing and non-productive cough since this AM. She has never had this happen before and denies history of asthma/pulmonary disease. She receive 1 duo-neb in triage and reports mild improvement in breathing. Denies fevers/chills, N/V, dysuria, hematuria Denies PMH reportedly uncomplicated 07/17/19 00:56 Past History - Past Medical History Allergies/Adverse Reactions: Allergies Allergy/AdvReac Type Severity Reaction Status Date / Time No Known Allergies Allergy Verified 07/13/19 11:32 Home Medications: Ambulatory Orders Vitamins (Sjr) - 1 tab PO DAILY 05/03/19 Ferrous Sulfate [Feosol] 325 mg PO DAILY #30 tablet 07/14/19 Ibuprofen 600 mg PO Q6H PRN #30 tablet 07/14/19 Asthma: No Cancer: No Cardiac Disorders: No COPD: No Diabetes: No HTN: No Seizures: No Thyroid Disease: No - Reproductive History Therapeutic (s) & number: No - Immunization History Immunization Up to Date: Yes - Psycho Social/Smoking Cessation Hx Smoking Status: No Smoking History: Never smoked Have you smoked in the past 12 months: No Number of Cigarettes Smoked Daily: 0 Hx Alcohol Use: No Drug/Substance Use Hx: No Hx Substance Use Treatment: No Review of Systems - Review of Systems Able to Perform ROS?: Yes Comments:: GENERAL/CONSTITUTIONAL: No fever or chills. No weakness HEAD, EYES, EARS, NOSE AND THROAT: No change in vision. No change in hearing. No sore throat CARDIOVASCULAR: Denies chest pain RESPIRATORY: +cough GASTROINTESTINAL: No nausea, vomiting, diarrhea or constipation GENITOURINARY: No dysuria, frequency, or change in urination MUSCULOSKELETAL: No joint or muscle swelling or pain. No neck or back pain SKIN: No rash NEUROLOGIC: No headache, vertigo, loss of consciousness, or change in strength/ sensation ENDOCRINE: No increased thirst. No abnormal weight change HEMATOLOGIC/LYMPHATIC: No anemia, easy bleeding, or history of blood clots ALLERGIC/IMMUNOLOGIC: No hives or skin allergy 07/16/19 23:42 Is the patient limited [place]ican proficient: No *Physical Exam - Vital Signs Last Vital Signs Temp Pulse Resp BP Pulse Ox 98.3 F 97 H 24 H 128/61 96 07/16/19 23:29 07/16/19 23:29 07/16/19 23:29 07/16/19 23:29 07/16/19 23:29 - Physical Exam Comments: GENERAL: Awake, alert, and oriented to person/place/time, in no acute distress HEAD: No signs of trauma, normocephalic, atraumatic EYES: PERRLA, EOMI, sclera anicteric, conjunctiva clear ENT: Hearing grossly normal, nares patent, oropharynx clear without exudates. Moist mucosa LUNGS: No distress, speaks in full sentences, b/l diffuse expiratory wheezing (L >R) HEART: Regular rate and rhythm, normal S1 and S2, no murmurs appreciated, peripheral pulses normal and equal bilaterally ABDOMEN: Soft, nontender, normoactive bowel sounds. No guarding, no rebound EXTREMITIES: BLE edema, ROM intact in all 4 extremities NEUROLOGICAL: Cranial nerves II through XII grossly intact. Normal speech, normal gait, no focal sensorimotor deficits SKIN: Warm, Dry 07/16/19 23:42 ED Treatment Course - LABORATORY CBC & Chemistry Diagram: 07/17/19 00:10 07/17/19 00:10 - RADIOLOGY Radiograph Interpretation: THIS IS A PRELIMINARY REPORT FROM [facility] DATE OF SERVICE: 2019-07-17 00:16:26 EXAM: CHEST CTA FINDINGS: No definite pulmonary embolus. However the scan is limited due to under opacification of the pulmonary arteries as well as image degradation from breathing motion artifact. Patchy infiltrates are noted in the right and left upper lobes. These could represent pneumonitis. These types of opacities which have somewhat of a nodular appearance can also be associated with neoplasm. Although less likely in a younger patient, follow- up recommended. No pleural effusions. No thoracic aortic aneurysm. Osseous structures are intact. 07/17/19 02:30 Medical Decision Making - Medical Decision Making The pt is a 29F , 3 days post- presents for 1 day of shortness of breath and wheezing w/ associated BLE swelling since delivery. ED Course s/p duo-neb x1 in triage with some improvement in symptoms Labs sent CTA chest POCUS w/ overall grossly normal EF, no pericardial effusion appreciated, no pulmonary b-lines, lung slide present b/l 07/17/19 01:07 CTA w/o definite PE, no TAA, possible b/l upper pneumonitis Trop I neg BNP slightly elevated WBC unremarkable Anemia noted, no indication to transfuse at this time No KARTIK LFTs unremarkable Pt with likely bronchospasm, possible cardiomyopathy 07/17/19 02:31 Pt signed out to [facility] Admitting 07/17/19 04:13 Discharge - Discharge Information Problems reviewed: Yes Clinical Impression/Diagnosis: Wheezing, Swelling of lower extremity Condition: Good - Admission Yes - Follow up/Referral - Patient Discharge Instructions - Post Discharge Activity
--- NOTE | 2019-07-16 23:50 | PDOC ---
Attending Attestation - Resident Resident Name: Víctor Peters - ED Attending Attestation I have performed the following: I have examined & evaluated the patient, The case was reviewed & discussed with the resident, I agree w/resident's findings & plan - HPI HPI: 07/17/19 03:50 see resident hpi - Physicial Exam PE: 07/17/19 03:50 agree with resident exam - Medical Decision Making 07/17/19 03:50 29-year-old female day 3 with leg swelling shortness of breath and wheezing CTA of the chest shows no definite PE with possible infiltrates on the right Patient did respond to bronchodilators There is some mild elevation of patient's BNP In light of active bronchospasm and risk factors for cardiomyopathy she will be admitted to medical service for further evaluation
[2019-07-17 00:44] LABS: BASO % 0.2 % (0-2.0); EOS % 4.6 % (0-4.5); HEMOGLOBIN 10.3 GM/dL (10.7-15.3); LYMPH % 20.5 % (8-40); MCH 21.8 pg (25.7-33.7); MCHC 31.1 g/dl (32.0-36.0); MEAN CELL VOLUME 70.1 fl (80-96); MEAN PLT VOLUME 8.2 fl (7.5-11.1); MONO % 4.2 % (3.8-10.2); NEUT % 70.5 % (42.8-82.8); PLATELET COUNT 345 K/MM3 (134-434); RBC 4.72 M/mm3 (3.60-5.2); RDW 16.6 % (11.6-15.6); WHITE BLOOD COUNT 11.5 K/mm3 (4.0-10.0)
[2019-07-17 01:09] LABS: ALBUMIN 2.7 g/dl (3.4-5.0); BILIRUBIN,TOTAL 0.2 mg/dL (0.2-1); BLOOD UREA NITROGEN 8.6 mg/dL (7-18); CALCIUM 8.9 mg/dL (8.5-10.1); CREATININE 0.6 mg/dL (0.55-1.3); POTASSIUM 3.7 mmol/L (3.5-5.1); TOT PROT 6.5 g/dl (6.4-8.2)
[2019-07-17 01:33] LABS: EPI CELLS 1.8 /HPF (0-5/HPF); HYALINE CASTS 0 /lpf (0-8); URINE APPEARANCE CLEAR; URINE BACTERIA 8.6 /hpf (NEGATIVE); URINE BILIRUBIN NEGATIVE (NEGATIVE); URINE COLOR YELLOW; URINE GLUCOSE (UA) NEGATIVE (NEGATIVE); URINE KETONE NEGATIVE (NEGATIVE); URINE LEUK ESTERASE 1+ (NEGATIVE); URINE NITRITE NEGATIVE (NEGATIVE); URINE PROTEIN NEGATIVE (NEGATIVE); URINE RBC 22 /hpf (0-4); URINE UROBILINOGEN 0.2 mg/dL (0.2-1.0); URINE WBC 12 /hpf (0-5)
[2019-07-17] MEDS ORDERED: ACETAMINOPHEN 325 MG TABLET (FP) PO ONE (02:04)
[2019-07-17] MEDS ORDERED: ACETAMINOPHEN 325 MG TABLET (FP) ONE (02:32)
--- NOTE | 2019-07-17 04:39 | PN ---
Teaching Attending Note Name of Resident: Prince Figueroa ATTENDING PHYSICIAN STATEMENT I saw and evaluated the patient. I reviewed the resident's note and discussed the case with the resident. I agree with the resident's findings and plan as documented. SUBJECTIVE: 29-year-old G2, P2 woman day 3 complained of shortness of breath and some chest tightness As well as leg swelling which started 07/16 and was not improving during the day. Patient also complains of shortness of breath while lying flat on her back and has decreased exercise tolerance. Denies any other significant past medical history. Previous about 1 year ago noted to of healthy child and did not have any complications. OBJECTIVE: Last Vital Signs Temp Pulse Resp BP Pulse Ox 98.3 F 79 18 113/71 98 07/17/19 04:30 07/17/19 04:30 07/17/19 04:30 07/17/19 04:30 07/17/19 04:30 GENERAL: Well developed, well nourished. Awake and alert. No acute distress. HEENT: Normocephalic, atraumatic. PERRLA, EOMI. No conjunctival pallor. Sclera are non- icteric. Moist mucous membranes. Oropharynx is clear. NECK: Supple. Full ROM. No JVD. Carotid pulses 2+ and symmetric, without bruits. No thyromegaly. No lymphadenopathy. CARDIOVASCULAR: Regular rate and rhythm. No murmurs, rubs, or gallops. Distal pulses are 2+ and symmetric. PULMONARY: Bilateral breath sounds, faint expiratory wheezing, no crackles appreciated ABDOMINAL: Soft. Non-tender. Non-distended. No rebound or guarding. No organomegaly. Normoactive bowel sounds. MUSCULOSKELETAL Normal range of motion at all joints. No bony deformities or tenderness. No CVA tenderness. EXTREMITIES: No cyanosis. No clubbing. No edema. No calf tenderness. SKIN: Warm and dry. Normal capillary refill. No rashes. No jaundice. PSYCHIATRIC: Cooperative. Good eye contact. Appropriate mood and affect. Abnormal Lab Results 07/17/19 07/17/19 07/17/19 00:10 00:10 00:10 WBC 11.5 H Hgb 10.3 L MCV 70.1 L MCH 21.8 L MCHC 31.1 L RDW 16.6 H Absolute Neuts (auto) 8.1 H Eosinophils % 4.6 H D AST 14 L Alkaline Phosphatase 144 H B-Natriuretic Peptide 193.6 H Albumin 2.7 L Urine Blood Ur Leukocyte Esterase 07/17/19 01:10 WBC Hgb MCV MCH MCHC RDW Absolute Neuts (auto) Eosinophils % AST Alkaline Phosphatase B-Natriuretic Peptide Albumin Urine Blood 2+ H Ur Leukocyte Esterase 1+ H Imaging reviewedCT angiogram of chest showed no PE however there was prominent pulmonary vasculature bilaterally EKG reviewed and did not show any ischemic changes ASSESSMENT AND PLAN: 29-year-old woman with clinical presentation consistent with cardiomyopathy/fluid overload. Pulmonary embolism was ruled out. Admit to telemetry Furosemide 40 mg stat and twice daily Accurate I's and O's and daily weights Fluid and salt restriction Repeat troponin Transthoracic echocardiogram #Expiratory wheezingfaint, might be undiagnosed asthma or may be secondary to CHF Duo nebs as needed #Microcytic anemialikely dilutional in peripartum state secondary to excess free water Monitor CBC Ferrous sulfate supplementation DVT prophylaxis with heparin subcutaneously
[2019-07-17] MEDS ORDERED: ALBUTEROL SO4 2.5/IPRATROPIUM 0.5 INH SOL 3 ML VIAL.NEB. NEB PRN (04:48)
--- NOTE | 2019-07-17 04:49 | HP ---
CHIEF COMPLAINT: SOB, wheezing PCP: none HISTORY OF PRESENT ILLNESS: The patient is a 29 yo f w/ no PMH who comes into the ED c/o a 1 day history of SOB, wheezing and cough. of note, the patient gave 3 days prior to admission. The patient also endorses LE swelling present since she came home from the hospital. ER course was notable for: (1) nebs x2 (2) WBC count 11.5 (3) Recent Travel: none PAST MEDICAL HISTORY: se hpi PAST SURGICAL HISTORY: none Social History: Smoking: denies Alcohol: denies Drugs: denies Allergies No Known Allergies Allergy (Verified 07/13/19 11:32) HOME MEDICATIONS: Home Medications Medication Instructions Recorded Vitamins (Sjr) - 1 tab PO DAILY 05/03/19 Ferrous Sulfate [Feosol] 325 mg PO DAILY #30 tablet 07/14/19 Ibuprofen 600 mg PO Q6H PRN #30 tablet 07/14/19 REVIEW OF SYSTEMS negative except of HPI PHYSICAL EXAMINATION Vital Signs - 24 hr 07/16/19 23:29 Temperature 98.3 F Pulse Rate 97 H Respiratory 24 H Rate Blood Pressure 128/61 O2 Sat by Pulse 96 Oximetry (%) GENERAL: Awake, alert, and fully oriented, in no acute distress. HEAD: Normal with no signs of trauma. EYES: Pupils equal, round and reactive to light, extraocular movements intact, sclera anicteric, conjunctiva clear. No lid lag. LUNGS: Decreased breath sounds bilaterally with decreased air movement. Scant end expiratory wheezes heard. HEART: Regular rate and rhythm, normal S1 and S2 without murmur, rub or gallop. ABDOMEN: Soft, mild tenderness to palpation, not distended, normoactive bowel sounds, no guarding, no rebound, no masses. No hepatomegaly or splenomegaly. LOWER EXTREMITIES: 2+ pulses, warm, well-perfused. No calf tenderness. Mild nonpitting edema noted. NEUROLOGICAL: Cranial nerves II-XII intact. Normal speech. Normal gait. Laboratory Results - last 24 hr 07/17/19 07/17/19 07/17/19 00:10 00:10 00:10 WBC 11.5 H RBC 4.72 Hgb 10.3 L Hct 33.0 MCV 70.1 L MCH 21.8 L MCHC 31.1 L RDW 16.6 H Plt Count 345 D MPV 8.2 Absolute Neuts (auto) 8.1 H Neutrophils % 70.5 Lymphocytes % 20.5 Monocytes % 4.2 Eosinophils % 4.6 H D Basophils % 0.2 Nucleated RBC % 0 Sodium 140 Potassium 3.7 Chloride 106 Carbon Dioxide 26 Anion Gap 8 BUN 8.6 Creatinine 0.6 Est GFR (CKD-EPI)AfAm 142.76 Est GFR (CKD-EPI)NonAf 123.17 Random Glucose 98 Calcium 8.9 Total Bilirubin 0.2 AST 14 L ALT 15 Alkaline Phosphatase 144 H Creatine Kinase 50 Troponin I < 0.02 B-Natriuretic Peptide Total Protein 6.5 Albumin 2.7 L Urine Color Urine Appearance Urine pH Ur Specific [place] Urine Protein Urine Glucose (UA) Urine Ketones Urine Blood Urine Nitrite Urine Bilirubin Urine Urobilinogen Ur Leukocyte Esterase Urine WBC (Auto) Urine RBC (Auto) Urine Casts (Auto) U Epithel Cells (Auto) Urine Bacteria (Auto) 07/17/19 07/17/19 00:10 01:10 WBC RBC Hgb Hct MCV MCH MCHC RDW Plt Count MPV Absolute Neuts (auto) Neutrophils % Lymphocytes % Monocytes % Eosinophils % Basophils % Nucleated RBC % Sodium Potassium Chloride Carbon Dioxide Anion Gap BUN Creatinine Est GFR (CKD-EPI)AfAm Est GFR (CKD-EPI)NonAf Random Glucose Calcium Total Bilirubin AST ALT Alkaline Phosphatase Creatine Kinase Troponin I B-Natriuretic Peptide 193.6 H Total Protein Albumin Urine Color Yellow Urine Appearance Clear Urine pH 7.0 Ur Specific [place] 1.013 Urine Protein Negative Urine Glucose (UA) Negative Urine Ketones Negative Urine Blood 2+ H Urine Nitrite Negative Urine Bilirubin Negative Urine Urobilinogen 0.2 Ur Leukocyte Esterase 1+ H Urine WBC (Auto) 12 Urine RBC (Auto) 22 Urine Casts (Auto) 0 U Epithel Cells (Auto) 1.8 Urine Bacteria (Auto) 8.6 ASSESSMENT/PLAN: The patient is a 29 yo f w/ no PMH who comes into the ED c/o a 1 day history of SOB, wheezing and cough. #SOB, wheezing cough possibly 2/2 fluid overload in the post period, r/o post cardio myopathy -echo -tele admit -lasix 40 given in the ED -lasix 40 iv BID -duonebs PRN -fluid restriction 1L -monitor intake and output -daily weights. #anemia -likely dilutional in peripartum period -iron supplementation #FEN -no fluids indicated -lytes WNL, will monitor -regular diet #Prophy -lovenox 40mg sq daily #dispo -admit tele for echo Visit type - Emergency Visit Emergency Visit: Yes ED Registration Date: 07/17/19 Care time: The patient presented to the Emergency Department on the above date and was hospitalized for further evaluation of their emergent condition. - New Patient This patient is new to me today: Yes Date on this admission: 07/17/19 - Critical Care Critical Care patient: No ATTENDING PHYSICIAN STATEMENT I saw and evaluated the patient. I reviewed the resident's note and discussed the case with the resident. I agree with the resident's findings and plan as documented. SUBJECTIVE: OBJECTIVE: ASSESSMENT AND PLAN:
[2019-07-17 06:11] LABS: HEMATOCRIT 29.9 % (32.4-45.2); HEMOGLOBIN 9.6 GM/dL (10.7-15.3); MCH 22.4 pg (25.7-33.7); MCHC 32.3 g/dl (32.0-36.0); MEAN CELL VOLUME 69.5 fl (80-96); MEAN PLT VOLUME 7.9 fl (7.5-11.1); PLATELET COUNT 313 K/MM3 (134-434); RDW 16.5 % (11.6-15.6); WHITE BLOOD COUNT 10.6 K/mm3 (4.0-10.0)
[2019-07-17 06:37] VITALS: BMI 46.3
[2019-07-17] MEDS ORDERED: traMADol HCL 50 MG TABLET PO ONE (06:37)
[2019-07-17] MEDS: FUROSEMIDE 40 MG/4 ML INJECTABLE VIAL IVPUSH SCH ×2 (06:45→13:10)
[2019-07-17 07:47] LABS: ALBUMIN 2.4 g/dl (3.4-5.0); ALK PHOS 126 U/L (45-117); ANION GAP 8 MMOL/L (8-16); BILIRUBIN,TOTAL 0.2 mg/dL (0.2-1); BLOOD UREA NITROGEN 8.2 mg/dL (7-18); CALCIUM 8.5 mg/dL (8.5-10.1); CHLORIDE 107 mmol/L (98-107); CO2 22 mmol/L (21-32); CREATININE 0.5 mg/dL (0.55-1.3); GLUCOSE,RANDOM 88 mg/dL (74-106); MAGNESIUM 1.7 mg/dL (1.8-2.4); PHOSPHOROUS 4.3 mg/dL (2.5-4.9); POTASSIUM 4.1 mmol/L (3.5-5.1); SGOT/AST 15 U/L (15-37); SGPT/ALT 14 U/L (13-61); SODIUM 137 mmol/L (136-145); TOT PROT 5.9 g/dl (6.4-8.2)
[2019-07-17] MEDS ORDERED: MAGNESIUM OXIDE 400 MG TABLET (FP) PO ONE (07:48)
--- NOTE | 2019-07-17 10:07 | PN ---
Physical Exam: SUBJECTIVE: Patient seen and examined in tele. at bedside. patient ambulates to bathroom, denies any dyspnea with exertion. no chest pain. wants to pump and dump her milk, she has been provided with a pump denies history of asthma. OBJECTIVE: troponins negative x 2, echo pending cta pending read Patient is a 29 year old female who is post day 3. She went into spontanous labor on 07/13/19 at [facility] and delivered a 7lb boy via vaginal without complications on 07/13/19 (she received an epidural). She was discharged on an iron pill, vitamins and motrin. She presents to the ED on 07/17/2019 with lower extremity edema and shortness of breath with wheezing. Her bnp is midly elevated. She is being admitted to rule out post cardiomyopathy. her blood pressure is stable and has not been elevated since admission. Her first two troponins were negative. Period Temp Pulse Resp BP Sys/Guillermo Pulse Ox Last 24 Hr 98.3 F-98.9 F 66-97 18-24 113-128/61-71 95-98 GENERAL: The patient is awake, alert, and fully oriented, in no acute distress. HEAD: Normal with no signs of trauma. EYES: PERRL, extraocular movements intact, sclera anicteric, conjunctiva clear. No ptosis. ENT: Ears normal, nares patent, oropharynx clear without exudates, moist mucous membranes. NECK: Trachea midline, full range of motion, supple. LUNGS: scattered expiratory wheezing. tolerating room air, stable oxygen saturations HEART: Regular rate and rhythm, ABDOMEN: Soft, nontender, nondistended, normoactive bowel sounds EXTREMITIES: trace edema on bilateral lower ext NEUROLOGICAL: Normal speech, gait steady PSYCH: Normal mood, normal affect. SKIN: Warm, dry, normal turgor, no rashes or lesions noted Laboratory Results - last 24 hr 07/17/19 07/17/19 07/17/19 00:10 00:10 00:10 WBC 11.5 H RBC 4.72 Hgb 10.3 L Hct 33.0 MCV 70.1 L MCH 21.8 L MCHC 31.1 L RDW 16.6 H Plt Count 345 D MPV 8.2 Absolute Neuts (auto) 8.1 H Neutrophils % 70.5 Lymphocytes % 20.5 Monocytes % 4.2 Eosinophils % 4.6 H D Basophils % 0.2 Nucleated RBC % 0 Sodium 140 Potassium 3.7 Chloride 106 Carbon Dioxide 26 Anion Gap 8 BUN 8.6 Creatinine 0.6 Est GFR (CKD-EPI)AfAm 142.76 Est GFR (CKD-EPI)NonAf 123.17 Random Glucose 98 Calcium 8.9 Phosphorus Magnesium Total Bilirubin 0.2 AST 14 L ALT 15 Alkaline Phosphatase 144 H Creatine Kinase 50 Troponin I < 0.02 B-Natriuretic Peptide Total Protein 6.5 Albumin 2.7 L Urine Color Urine Appearance Urine pH Ur Specific [place] Urine Protein Urine Glucose (UA) Urine Ketones Urine Blood Urine Nitrite Urine Bilirubin Urine Urobilinogen Ur Leukocyte Esterase Urine WBC (Auto) Urine RBC (Auto) Urine Casts (Auto) U Epithel Cells (Auto) Urine Bacteria (Auto) 07/17/19 07/17/19 07/17/19 00:10 01:10 05:24 WBC 10.6 H RBC 4.30 Hgb 9.6 L Hct 29.9 L MCV 69.5 L MCH 22.4 L MCHC 32.3 RDW 16.5 H Plt Count 313 MPV 7.9 Absolute Neuts (auto) Neutrophils % Lymphocytes % Monocytes % Eosinophils % Basophils % Nucleated RBC % Sodium Potassium Chloride Carbon Dioxide Anion Gap BUN Creatinine Est GFR (CKD-EPI)AfAm Est GFR (CKD-EPI)NonAf Random Glucose Calcium Phosphorus Magnesium Total Bilirubin AST ALT Alkaline Phosphatase Creatine Kinase Troponin I B-Natriuretic Peptide 193.6 H Total Protein Albumin Urine Color Yellow Urine Appearance Clear Urine pH 7.0 Ur Specific [place] 1.013 Urine Protein Negative Urine Glucose (UA) Negative Urine Ketones Negative Urine Blood 2+ H Urine Nitrite Negative Urine Bilirubin Negative Urine Urobilinogen 0.2 Ur Leukocyte Esterase 1+ H Urine WBC (Auto) 12 Urine RBC (Auto) 22 Urine Casts (Auto) 0 U Epithel Cells (Auto) 1.8 Urine Bacteria (Auto) 8.6 07/17/19 05:24 WBC RBC Hgb Hct MCV MCH MCHC RDW Plt Count MPV Absolute Neuts (auto) Neutrophils % Lymphocytes % Monocytes % Eosinophils % Basophils % Nucleated RBC % Sodium 137 Potassium 4.1 Chloride 107 Carbon Dioxide 22 Anion Gap 8 BUN 8.2 Creatinine 0.5 L Est GFR (CKD-EPI)AfAm 151.59 Est GFR (CKD-EPI)NonAf 130.79 Random Glucose 88 Calcium 8.5 Phosphorus 4.3 Magnesium 1.7 L Total Bilirubin 0.2 AST 15 ALT 14 Alkaline Phosphatase 126 H Creatine Kinase Troponin I < 0.02 B-Natriuretic Peptide Total Protein 5.9 L Albumin 2.4 L Urine Color Urine Appearance Urine pH Ur Specific [place] Urine Protein Urine Glucose (UA) Urine Ketones Urine Blood Urine Nitrite Urine Bilirubin Urine Urobilinogen Ur Leukocyte Esterase Urine WBC (Auto) Urine RBC (Auto) Urine Casts (Auto) U Epithel Cells (Auto) Urine Bacteria (Auto) Active Medications Generic Name Dose Route Start Last Admin Trade Name Freq PRN Reason Stop Dose Admin Albuterol/Ipratropium 1 amp 07/17/19 04:48 Duoneb - NEB Q4H PRN SHORTNESS OF BREATH Enoxaparin Sodium 40 mg 07/17/19 10:00 Lovenox - SQ DAILY ZOILA Ferrous Sulfate 325 mg 07/17/19 10:00 Feosol - PO DAILY ZOILA Furosemide 40 mg 07/17/19 06:00 07/17/19 06:45 Lasix Injection - IVPUSH 40 mg BID@0600,1400 ZOILA Administration Multivit/Folic Acid/Iron 1 tab 07/17/19 10:00 Vitamins (Sjr) - PO DAILY ZOILA ASSESSMENT/PLAN: Problem List - Problems (1) Shortness of breath Assessment/Plan: stable on room air shortness of breath possibly due to fluid overload post vs post cardio myopathy echocardiogram ordered on tele duonebs prn, daily weights fluid restriction 1 liter some wheezing auscultated on bilateral lobes on lasix bid oxygen prn chest cta pending official read, no pe seen on preliminary read Code(s): R06.02 - SHORTNESS OF BREATH (2) Swelling of lower extremity Assessment/Plan: improving, elevate legs at heart level, overall patient reports less edema of legs Code(s): M79.89 - OTHER SPECIFIED SOFT TISSUE DISORDERS (3) Wheezing Assessment/Plan: undiagnosed asthma vs chf. incentive spirometer oxygen sats are stable on lasix bid cardiology following. pulm consulted to rule out new asthma diagnosis Code(s): R06.2 - WHEEZING (4) Headache Assessment/Plan: tylenol prn Code(s): R51 - HEADACHE Qualifiers: Headache type: unspecified Headache chronicity pattern: acute headache Intractability: not intractable Qualified Code(s): R51 - Headache (5) headache Code(s): O90.89 - OTH COMPLICATIONS OF THE PUERPERIUM, NEC; R51 - HEADACHE (6) complication Assessment/Plan: presents with shortness of breath and lower ext edema cta pending official read, no pe seen on preliminary monitor intake and output on lasix bnp slightly elevated Code(s): O90.89 - OTH COMPLICATIONS OF THE PUERPERIUM, NEC (7) Anemia Assessment/Plan: monitor cbc likely 2/2 to acute blood loss due to vaginal can also be due to peripartum period on iron supplementation Code(s): D64.9 - ANEMIA, UNSPECIFIED (8) Prophylactic measure Assessment/Plan: fen tolerating PO monitor electrolyes on lasix monitor vitals, labs on vitamin no a/c - anticipated los < 24 hours awaiting echo Code(s): Z29.9 - ENCOUNTER FOR PROPHYLACTIC MEASURES, UNSPECIFIED Visit type - Emergency Visit Emergency Visit: Yes ED Registration Date: 07/17/19 Care time: The patient presented to the Emergency Department on the above date and was hospitalized for further evaluation of their emergent condition. - New Patient This patient is new to me today: Yes Date on this admission: 07/17/19 - Critical Care Critical Care patient: No - Discharge Referral Referred to [facility] Med P.C.: No
[2019-07-17] MEDS: PRENATAL VITAMINS W/ FOLIC ACID TABLET (FP) PO SCH (10:12)
[2019-07-17] MEDS: FERROUS SO4 325 MG TABLET (FP) PO SCH (10:12)
[2019-07-17] MEDS: ENOXAPARIN NA (PORCINE) 40 MG/0.4 ML DISP.SYRIN SQ SCH (10:12)
[2019-07-17] MEDS ORDERED: ACETAMINOPHEN 325 MG TABLET (FP) PO PRN (10:32)
--- NOTE | 2019-07-17 14:12 | PN ---
Progress Note (short form) - Note Progress Note: PULMONARY CONSULTATION DICTATED 07/17/19 IMP DYSPNEA,COUGH BRONCHOSPASM ? ASTHMA PATCHY BILATERAL INFILTRATES R/O PNEUMONIA S/P PLAN INHALED BRONCHODILATORS ABX LASIX PFTS OUTPATIENT F/U CHEST X-RAYS OUTPATIENT TO CONFIRM RESOLUTION OF INFILTRATES MONITOR PEAK FLOW ECHO DR PHAM Problem List - Problems (1) Anemia Code(s): D64.9 - ANEMIA, UNSPECIFIED (2) complication Code(s): O90.89 - OTH COMPLICATIONS OF THE PUERPERIUM, NEC (3) Shortness of breath Code(s): R06.02 - SHORTNESS OF BREATH (4) Wheezing Code(s): R06.2 - WHEEZING (5) Pneumonia Code(s): J18.9 - PNEUMONIA, UNSPECIFIED ORGANISM
[2019-07-17] MEDS ORDERED: ALBUTEROL SO4 0.083% IH SOL 2.5 MG/3 ML VIAL.NEB. NEB PRN (14:28)
[2019-07-17] MEDS: MOMETASONE FUROATE 220 MCG/IH INHALER IH SCH (15:32)
--- NOTE | 2019-07-17 16:13 | CONS ---
DATE OF CONSULTATION: 07/17/2019 REFERRING PROVIDER: KILO Rosario The patient is a 29-year-old female, without any significant past medical history, status post normal spontaneous vaginal delivery on Thursday prior to this admission, admitted to [facility] with complaint of shortness of breath, cough, and bronchospasm. Patient states she was doing well until the day prior to admission, when she started developing shortness of breath, cough, and wheezing. Denies any fevers or chills. Denied any hemoptysis. She also noted increasing lower extremity edema. Patient presented to the emergency room with the above. On admission, she was administered Lasix in the ER and transferred to medical ICU for further management. Patient denies any chest pain. Denies any fevers or chills. Denies any hemoptysis. She denies any history of asthma or COPD, and she is a nonsmoker. There is no history of occupational exposures to chemicals or fumes. She denies any respiratory issues prior to this admission. Past medical history, again, is unremarkable. REVIEW OF SYSTEMS: Positive for cough, positive mild shortness of breath, positive bronchospasm. No fever, no chills, no hemoptysis. Positive chest tightness. No nausea, no vomiting. Positive for lower extremity edema. Current medications include Tylenol, Lovenox, DuoNeb, Feosol, Lasix, and vitamins. PHYSICAL EXAMINATION: General: The patient is a well-developed, well-nourished female, awake, alert, in no acute distress. Vital Signs: She is afebrile. Blood pressure is 135/65. Respiratory rate 16. O2 saturation is 98% on room air. HEENT: Normocephalic, atraumatic. Neck: Supple. Heart: Regular, S1, S2. Chest: Scattered bilateral wheezes. Abdomen: Soft. Bowel sounds positive. Extremities: No cyanosis, edema. CAT SCAN OF THE CHEST: No evidence of pulmonary emboli. There are several small upper lobe patchy opacities bilaterally, possible pneumonitis. LABORATORY DATA: WBC is 11.5, hemoglobin 10.3, hematocrit 33, platelet count 345,000. Chemistries: BUN 8, creatinine 0.5. BNP 193. IMPRESSION: 1. Cough, bronchospasm, possible mild obstructive airway disease. Patient has a family history of asthma. 2. Patchy right upper lobe infiltrates, possible infectious etiology, possible aspiration. 3. day 4, status post normal spontaneous vaginal delivery. PLAN: Inhaled bronchodilators, antibiotics, PFTs as outpatient. Also followup chest x-ray outpatient to confirm resolution of infiltrates. Monitor peak flow. Echocardiogram. Lasix. BENEDICTO PHAM M.D. [id number]
[2019-07-17] MEDS: ALBUTEROL SO4 2.5/IPRATROPIUM 0.5 INH SOL 3 ML VIAL.NEB. NEB SCH (16:56)
--- NOTE | 2019-07-17 16:58 | EKG ---
Test Reason : Blood Pressure : / mmHG Vent. Rate : 088 BPM Atrial Rate : 088 BPM P-R Int : 154 ms QRS Dur : 066 ms QT Int : 340 ms P-R-T Axes : 042 028 056 degrees QTc Int : 411 ms NORMAL SINUS RHYTHM WHEN COMPARED WITH ECG OF 03-MAY-2011 21:48, NO SIGNIFICANT CHANGE WAS FOUND Confirmed by ADONAY SWEET MD ([id number]) on 07/17/2019 4:58:01 PM Referred By: Confirmed By:ADONAY SWEET MD
[2019-07-17] MEDS: AMOX TR/POT CLAV 875MG/125MG TABLETS (FP) PO SCH (17:13)
[2019-07-17] MEDS: traMADol HCL 50 MG TABLET PO PRN (21:29)
[2019-07-18 04:09] VITALS: BP 113/66; PULSE 67; TEMP 98.3
--- NOTE | 2019-07-18 06:01 | CON.CARD ---
Consult Consult Specialty:: cardiology Reason for Consultation:: atypical chest pain - History of Present Illness Chief Complaint: Pt A&Ox3; is visiting. Pt denies chest pain; shortness of breath has improved markedly. History of Present Illness: 29-year-old white woman day 3 with leg swelling shortness of breath and wheezing CTA of the chest shows no definite PE with possible infiltrates on the right Patient did respond to bronchodilators There is some mild elevation of patient's BNP In light of active bronchospasm and risk factors for cardiomyopathy she will be admitted to medical service for further evaluation - History Source History Provided By: Patient, Family Member ([email or web address]) Limitations to Obtaining History: No Limitations - Past Medical History Pulmonary: No: Asthma ...: No - Alcohol/Substance Use Hx Alcohol Use: No History of Substance Use: reports: None - Smoking History Smoking history: Never smoked Have you smoked in the past 12 months: No Aproximately how many cigarettes per day: 0 - Social History History of Recent Travel: No Home Medications - Allergies Allergies/Adverse Reactions: Allergies Allergy/AdvReac Type Severity Reaction Status Date / Time No Known Allergies Allergy Verified 07/13/19 11:32 - Home Medications Home Medications: Ambulatory Orders Ferrous Sulfate [Feosol] 325 mg PO DAILY #30 tablet 07/14/19 Ibuprofen 600 mg PO Q6H PRN #30 tablet 07/14/19 Vital Signs: Vital Signs Temperature 98.3 F 07/17/19 22:00 Pulse Rate 67 07/17/19 22:00 Respiratory Rate 18 07/17/19 22:00 Blood Pressure 113/66 07/17/19 22:00 O2 Sat by Pulse Oximetry (%) 95 07/17/19 21:00 - Other Data Labs, Other Data: CBC, BMP 07/17/19 05:24 07/17/19 05:24 Troponin, BNP 07/17/19 07/17/19 05:24 11:10 Troponin I < 0.02 < 0.02 Troponin, BNP 07/17/19 07/17/19 05:24 11:10 Troponin I < 0.02 < 0.02 Problem List - Problems (1) cardiomyopathy Assessment/Plan: sudden development of dyspnea 3 days post-. EKG: NSR; normal study. F/u TSH. F/u Hb. Await ECHO for LVEF. Code(s): O90.3 - PERIPARTUM CARDIOMYOPATHY (2) complication Code(s): O90.89 - OTH COMPLICATIONS OF THE PUERPERIUM, NEC (3) Shortness of breath Code(s): R06.02 - SHORTNESS OF BREATH (4) Headache Code(s): R51 - HEADACHE Qualifiers: Headache type: unspecified Headache chronicity pattern: acute headache Intractability: not intractable Qualified Code(s): R51 - Headache
[2019-07-18 06:35] LABS: BASO % 0.3 % (0-2.0); EOS % 6.5 % (0-4.5); HEMATOCRIT 34.5 % (32.4-45.2); HEMOGLOBIN 10.9 GM/dL (10.7-15.3); LYMPH % 32.2 % (8-40); MCH 22.1 pg (25.7-33.7); MCHC 31.7 g/dl (32.0-36.0); MEAN CELL VOLUME 69.6 fl (80-96); MEAN PLT VOLUME 7.6 fl (7.5-11.1); MONO % 6.3 % (3.8-10.2); NEUT % 54.7 % (42.8-82.8); PLATELET COUNT 375 K/MM3 (134-434); RBC 4.96 M/mm3 (3.60-5.2); RDW 16.8 % (11.6-15.6); WHITE BLOOD COUNT 9.4 K/mm3 (4.0-10.0)
[2019-07-18 07:13] LABS: ALBUMIN 2.6 g/dl (3.4-5.0); BILIRUBIN,TOTAL 0.2 mg/dL (0.2-1); CALCIUM 8.4 mg/dL (8.5-10.1); CREATININE 0.6 mg/dL (0.55-1.3); MAGNESIUM 2.3 mg/dL (1.8-2.4); TOT PROT 6.3 g/dl (6.4-8.2)
[2019-07-18] MEDS: traMADol HCL 50 MG TABLET PO PRN (07:31)
[2019-07-18] MEDS: FUROSEMIDE 40 MG/4 ML INJECTABLE VIAL IVPUSH SCH (07:31)
[2019-07-18] MEDS: ALBUTEROL SO4 2.5/IPRATROPIUM 0.5 INH SOL 3 ML VIAL.NEB. NEB SCH ×2 (08:12→11:25)
[2019-07-18] MEDS: AMOX TR/POT CLAV 875MG/125MG TABLETS (FP) PO SCH (09:02)
[2019-07-18] MEDS: FERROUS SO4 325 MG TABLET (FP) PO SCH (09:02)
[2019-07-18] MEDS: ENOXAPARIN NA (PORCINE) 40 MG/0.4 ML DISP.SYRIN SQ SCH (09:02)
--- NOTE | 2019-07-18 11:36 | PN ---
Progress Note, Physician History of Present Illness: BD-responsive dyspnea, wheeze and cough resolving. Patient reports exposure to second hand smoke. - Current Medication List Current Medications: Active Medications Acetaminophen (Tylenol -) 650 mg PO Q6H PRN PRN Reason: PAIN LEVEL 4 - 6 Last Admin: 07/17/19 17:13 Dose: 650 mg Albuterol Sulfate (Ventolin 0.083% Nebulizer Soln -) 1 amp NEB Q4H PRN PRN Reason: SHORT OF BREATH/WHEEZING Albuterol/Ipratropium (Duoneb -) 1 amp NEB RQID [facility] Last Admin: 07/18/19 08:12 Dose: 1 amp Amoxicillin/Clavulanate Potassium (Augmentin - 875mg Tablet) 1 tab PO BID@0800, 1730 [facility] Last Admin: 07/18/19 09:02 Dose: 1 tab Enoxaparin Sodium (Lovenox -) 40 mg SQ DAILY [facility] Last Admin: 07/18/19 09:02 Dose: 40 mg Ferrous Sulfate (Feosol -) 325 mg PO DAILY [facility] Last Admin: 07/18/19 09:02 Dose: 325 mg Furosemide (Lasix Injection -) 40 mg IVPUSH BID@0600,1400 [facility] Last Admin: 07/18/19 07:31 Dose: 40 mg Mometasone Furoate (Asmanex 220mcg -) 2 puff IH DAILY [facility] Last Admin: 07/17/19 15:32 Dose: 2 inh Multivit/Folic Acid/Iron ( Vitamins (Sjr) -) 1 tab PO DAILY [facility] Last Admin: 07/17/19 10:12 Dose: 1 tab Tramadol HCl (Ultram -) 50 mg PO Q6H PRN PRN Reason: PAIN LEVEL 6-10 Last Admin: 07/18/19 07:31 Dose: 50 mg - Objective Vital Signs: Vital Signs Temperature 98.3 F 07/17/19 22:00 Pulse Rate 67 07/17/19 22:00 Respiratory Rate 18 07/18/19 08:41 Blood Pressure 113/66 07/17/19 22:00 O2 Sat by Pulse Oximetry (%) 95 07/18/19 08:41 Constitutional: Yes: No Distress, Calm Neck: Yes: Supple Cardiovascular: Yes: Regular Rate and Rhythm Respiratory: Yes: Regular, Diminished Gastrointestinal: Yes: Normal Bowel Sounds, Soft, Abdomen, Obese Edema: No Labs: CBC, BMP 07/18/19 06:07 07/18/19 06:07 - ....Imaging EKG: Report Reviewed (Tele: SR) Problem List - Problems (1) Asthma Code(s): J45.909 - UNSPECIFIED ASTHMA, UNCOMPLICATED Qualifiers: Asthma severity: mild Asthma persistence: intermittent Asthma complication type: uncomplicated Qualified Code(s): J45.20 - Mild intermittent asthma, uncomplicated (2) Pneumonia Code(s): J18.9 - PNEUMONIA, UNSPECIFIED ORGANISM Qualifiers: Pneumonia type: due to unspecified organism Lung location: unspecified part of lung (3) complication Code(s): O90.89 - OTH COMPLICATIONS OF THE PUERPERIUM, NEC Assessment/Plan 07/18/2019 Echo: Normal LV and RV size and fxn, LVEF 60-65%, normal biatrial sizes, mild MR, TR 1. BD-responsive dyspnea with patchy bilateral infiltrates referable to asthma r /o PNA 2. Post- status P:1. Ruled out for post- pulmonary embolism and cardiomyopathy 2. Abx, BD, O2 as needed, d/c Lasix, outpatient PFTs, avoid second hand smoke exposure 3. F/u CXR to confirm resolution of infiltrates
--- NOTE | 2019-07-18 11:38 | ECHO ---
Name: DARION TOWNSEND Exam:Adult Echocardiogram Study Date: 07/18/2019 08:05 AM Age: 29 yrs Reason For Study: Cardiomyopathy Height: 60 in Weight: 240 lb BSA: 2.0 m2 MMode/2D Measurements & Calculations IVSd: 0.82 cm Ao root diam: 2.4 cm LVIDd: 4.0 cm LA dimension: 2.6 cm LVIDs: 2.4 cm LVPWd: 0.77 cm EDV(Teich): 69.4 ml LVOT diam: 2.0 cm ESV(Teich): 20.3 ml LAV (MOD-bp): 34.7 ml Doppler Measurements & Calculations MV E max david: 71.8 cm/sec Ao V2 max: 145.2 cm/sec MV A max david: 56.8 cm/sec Ao max P.4 mmHg MV E/A: 1.3 MV dec time: 0.15 sec KATHY(V,D): 2.2 cm2 LV V1 max P.7 mmHg TR max david: 190.0 cm/sec LV V1 max: 108.2 cm/sec TR max P.4 mmHg PA V2 max: 111.3 cm/sec Med Peak E' David: 6.1 cm/sec PA max P.0 mmHg Med E/e': 11.8 Lat Peak E' David: 12.5 cm/sec Lat E/e': 5.7 Procedure A complete two-dimensional transthoracic echocardiogram was performed (2D, M-mode, Doppler and color flow Doppler). Left Ventricle The left ventricle is normal in size. Left ventricular systolic function is normal. Ejection Fraction = 60- 65%. No regional wall motion abnormalities noted. Right Ventricle The right ventricle is normal size. The right ventricular systolic function is normal. Atria The left atrial size is normal. Right atrial size is normal. Mitral Valve The mitral valve is normal in structure and function. There is mild mitral regurgitation. Tricuspid Valve The tricuspid valve is normal in structure and function. There is mild tricuspid regurgitation. Right ventricular systolic pressure is normal. Aortic Valve The aortic valve is normal in structure and function. No aortic regurgitation is present. Pulmonic Valve The pulmonic valve is not well visualized. Great Vessels The aortic root is normal size. Pericardium/Pleura There is no pericardial effusion. Interpretation Summary The left ventricle is normal in size. Left ventricular systolic function is normal. No regional wall motion abnormalities noted. Ejection Fraction = 60-65%. The right ventricular systolic function is normal. The left atrial size is normal. Right atrial size is normal. There is mild mitral regurgitation. There is mild tricuspid regurgitation. Right ventricular systolic pressure is normal. There is no pericardial effusion. Bolivar Lawrence MD 07/18/2019 11:38 AM
[2019-07-18] MEDS ORDERED: PT OWN MED DRAWER 7, Y5N ONE (11:39)
[2019-07-18] MEDS: PRENATAL VITAMINS W/ FOLIC ACID TABLET (FP) PO SCH (11:47)
[2019-07-18] MEDS: MOMETASONE FUROATE 220 MCG/IH INHALER IH SCH (11:47)
--- NOTE | 2019-07-18 12:13 | PN ---
Progress Note, Physician History of Present Illness: pulmonary alert,feeling better,dyspnea improving - Current Medication List Current Medications: Active Medications Acetaminophen (Tylenol -) 650 mg PO Q6H PRN PRN Reason: PAIN LEVEL 4 - 6 Last Admin: 07/17/19 17:13 Dose: 650 mg Albuterol Sulfate (Ventolin 0.083% Nebulizer Soln -) 1 amp NEB Q4H PRN PRN Reason: SHORT OF BREATH/WHEEZING Albuterol/Ipratropium (Duoneb -) 1 amp NEB RQID [facility] Last Admin: 07/18/19 08:12 Dose: 1 amp Amoxicillin/Clavulanate Potassium (Augmentin - 875mg Tablet) 1 tab PO BID@0800, 1730 [facility] Last Admin: 07/18/19 09:02 Dose: 1 tab Enoxaparin Sodium (Lovenox -) 40 mg SQ DAILY [facility] Last Admin: 07/18/19 09:02 Dose: 40 mg Ferrous Sulfate (Feosol -) 325 mg PO DAILY [facility] Last Admin: 07/18/19 09:02 Dose: 325 mg Mometasone Furoate (Asmanex 220mcg -) 2 puff IH DAILY [facility] Last Admin: 07/18/19 11:47 Dose: 2 inh Multivit/Folic Acid/Iron ( Vitamins (Sjr) -) 1 tab PO DAILY [facility] Last Admin: 07/18/19 11:47 Dose: 1 tab Tramadol HCl (Ultram -) 50 mg PO Q6H PRN PRN Reason: PAIN LEVEL 6-10 Last Admin: 07/18/19 07:31 Dose: 50 mg - Objective Vital Signs: Vital Signs Temperature 98.3 F 07/17/19 22:00 Pulse Rate 67 07/17/19 22:00 Respiratory Rate 18 07/18/19 08:41 Blood Pressure 113/66 07/17/19 22:00 O2 Sat by Pulse Oximetry (%) 95 07/18/19 08:41 Constitutional: Yes: Well Nourished, Calm Eyes: Yes: WNL HENT: Yes: WNL Neck: Yes: WNL Cardiovascular: Yes: Regular Rate and Rhythm, S1, S2 Respiratory: Yes: Wheezes (few wheezes improving) Gastrointestinal: Yes: Normal Bowel Sounds, Soft Extremities: Yes: WNL Edema: Yes Labs: CBC, BMP 07/18/19 06:07 07/18/19 06:07 Problem List - Problems (1) Anemia Code(s): D64.9 - ANEMIA, UNSPECIFIED (2) complication Code(s): O90.89 - OTH COMPLICATIONS OF THE PUERPERIUM, NEC (3) Shortness of breath Code(s): R06.02 - SHORTNESS OF BREATH (4) Wheezing Code(s): R06.2 - WHEEZING (5) Pneumonia Code(s): J18.9 - PNEUMONIA, UNSPECIFIED ORGANISM Qualifiers: Pneumonia type: due to unspecified organism Lung location: unspecified part of lung Assessment/Plan IMP DYSPNEA,COUGH BRONCHOSPASM ? ASTHMA IMPROVING PATCHY BILATERAL INFILTRATES R/O PNEUMONIA POST DAY 5 PLAN INHALED BRONCHODILATORS ABX LASIX PFTS OUTPATIENT INHALED STEROIDS F/U CHEST X-RAYS OUTPATIENT TO CONFIRM RESOLUTION OF INFILTRATES MONITOR PEAK FLOW DR PHAM Problem List - Problems (1) Anemia Code(s): D64.9 - ANEMIA, UNSPECIFIED (2) complication Code(s): O90.89 - OTH COMPLICATIONS OF THE PUERPERIUM, NEC (3) Shortness of breath Code(s): R06.02 - SHORTNESS OF BREATH (4) Wheezing Code(s): R06.2 - WHEEZING (5) Pneumonia Code(s): J18.9 - PNEUMONIA, UNSPECIFIED ORGANISM
--- NOTE | 2019-07-18 16:13 | DS ---
Physical Exam: SUBJECTIVE: Patient seen and examined OBJECTIVE: Vital Signs Period Temp Pulse Resp BP Sys/Guillermo Pulse Ox Last 24 Hr 98.3 F-99.2 F 67-103 14-18 113-115/66-83 95-95 PHYSICAL EXAM GENERAL: The patient is awake, alert, and fully oriented, in no acute distress. HEAD: Normal with no signs of trauma. EYES: PERRL, extraocular movements intact, sclera anicteric, conjunctiva clear. ENT: Ears normal, nares patent, oropharynx clear without exudates, moist mucous membranes. NECK: Trachea midline, full range of motion, supple. LUNGS: Breath sounds equal, clear to auscultation bilaterally, no wheezes, no crackles, no accessory muscle use. HEART: Regular rate and rhythm, S1, S2 without murmur, rub or gallop. ABDOMEN: Soft, nontender, nondistended, normoactive bowel sounds, no guarding, no rebound, no hepatosplenomegaly, no masses. EXTREMITIES: 2+ pulses, warm, well-perfused, no edema. NEUROLOGICAL: Cranial nerves II through XII grossly intact. Normal speech, gait not observed. PSYCH: Normal mood, normal affect. SKIN: Warm, dry, normal turgor, no rashes or lesions noted. LABS Laboratory Results - last 24 hr 07/18/19 07/18/19 06:07 06:07 WBC 9.4 RBC 4.96 Hgb 10.9 Hct 34.5 D MCV 69.6 L MCH 22.1 L MCHC 31.7 L RDW 16.8 H Plt Count 375 MPV 7.6 Absolute Neuts (auto) 5.2 Neutrophils % 54.7 D Lymphocytes % 32.2 D Monocytes % 6.3 Eosinophils % 6.5 H Basophils % 0.3 Nucleated RBC % 0 Sodium 138 Potassium 4.0 Chloride 104 Carbon Dioxide 25 Anion Gap 8 BUN 13.0 Creatinine 0.6 Est GFR (CKD-EPI)AfAm 142.76 Est GFR (CKD-EPI)NonAf 123.17 Random Glucose 83 Calcium 8.4 L Magnesium 2.3 Total Bilirubin 0.2 AST 14 L ALT 19 Alkaline Phosphatase 130 H Total Protein 6.3 L Albumin 2.6 L TSH 3.48 HOSPITAL COURSE: Date of Admission:07/17/19 Date of Discharge: 07/18/19 Discharge Summary Problems reviewed: Yes Reason For Visit: BRONCHOSPASM,SWELLING OF LOWER EXTREMITY,SENSATION Condition: Good - Instructions Diet, Activity, Other Instructions: Mrs Moncada: You were admittred for shortness of breath and found to have a possible pneumonia. You may also have underlying asthma. Here are our recommendations. Shortness of breath: continue taking the asthmanex inhaler twice a day. You will need to follow up with Dr. Lyman for further workup up and to finalize diagnosis of asthma. On Chest CT you showed a possibility of pneumonia and we have started you on Augmentin antibiotic TWICE per day. Take for 7 more days. Once you complete the antibiotics, please see your primary care doctor to have your chest imaging repeated. do not breastfeed your baby until you are cleared to do so by your [employer] doctor* Since you do not have a primary care doctor, we have assigned one for you as follows: Date/Time: 2:30pm , july 21 2019 Doctor: Torey Saab MD Bring: bring your insurance card, picture ID and discharge paperwork. Place: [address] [place] [address], 1st floor. [facility] Thank you for allowing us to care for you. Referrals: Torey Walton MD [Staff Physician] - (2:30pm , july 21 - Dr. Telles. bring your insurance card, picture ID and discharge paperwork. ) Disposition: HOME - Home Medications Comprehensive Discharge Medication List: Ambulatory Orders Ferrous Sulfate [Feosol] 325 mg PO DAILY #30 tablet 07/14/19 Ibuprofen 600 mg PO Q6H PRN #30 tablet 07/14/19 Amox-Tr/K Cl [Augmentin 875-125mg Tablet -] 1 tab PO BID@0800,1730 7 Days #14 tablet 07/18/19 Ferrous Sulfate [Feosol] 325 mg PO DAILY ud 07/18/19 Mometasone Furoate [Asmanex 220Mcg -] 2 puff IH DAILY #1 inhaler 07/18/19 Vitamins (Sjr) - 1 tab PO DAILY tablet 07/18/19 Problem List - Problems (1) Shortness of breath Code(s): R06.02 - SHORTNESS OF BREATH (2) Swelling of lower extremity Code(s): M79.89 - OTHER SPECIFIED SOFT TISSUE DISORDERS (3) Wheezing Code(s): R06.2 - WHEEZING (4) Headache Code(s): R51 - HEADACHE Qualifiers: Headache type: unspecified Headache chronicity pattern: acute headache Intractability: not intractable Qualified Code(s): R51 - Headache (5) headache Code(s): O90.89 - OTH COMPLICATIONS OF THE PUERPERIUM, NEC; R51 - HEADACHE (6) complication Code(s): O90.89 - OTH COMPLICATIONS OF THE PUERPERIUM, NEC (7) Anemia Code(s): D64.9 - ANEMIA, UNSPECIFIED (8) Prophylactic measure Code(s): Z29.9 - ENCOUNTER FOR PROPHYLACTIC MEASURES, UNSPECIFIED - Discharge Referral Referred to [facility] No
== END 2019-07-18 15:20 | disposition home or self-care (01) | DRG 561 ==
LOC: JER 23:26 → JERBED 07-17 03:54 → J2W 07-17 06:03
PROVIDERS: ADMIT Internal Medicine; ATTEND Nurse Practitioner Family
DX: O99.53 Diseases of the respiratory system complicating the puerperium (principal); J18.9 Pneumonia, unspecified organism; O90.81 Anemia of the puerperium; E87.70 Fluid overload, unspecified; O99.215 Obesity complicating the puerperium; E66.9 Obesity, unspecified; J45.20 Mild intermittent asthma, uncomplicated
CPT/HCPCS: 36415; 71275-TC; 80053; 81003; 82550; 83735; 83880; 84100; 84443; 84484; 85025; 85027; 93005; 93010; 93306-TC; 94640; 99285-25

== ENCOUNTER 2021-02-10 09:30 | Inpatient (IN) | payer OTHER ==
[2021-02-10] MEDS ORDERED: AMPICILLIN - 2 GM in SODIUM CHLORIDE 100 ML IVPB ONE (10:15)
[2021-02-10] MEDS ORDERED: OXYTOCIN 30 UNITS in 0.9% NS 30 UNIT/500 ML INFUS.BAG IVPB SCH (10:30)
[2021-02-10] MEDS ORDERED: ELECTROLYTE-148 SOLN 1,000 ML IV SCH (10:30)
[2021-02-10 10:45] VITALS: BMI 47.6
[2021-02-10 11:13] LABS: BASO % 0.2 % (0-2.0); MCH 19.5 pg (25.7-33.7); MCHC 30.1 g/dl (32.0-36.0); MEAN CELL VOLUME 64.6 fl (80-96); MEAN PLT VOLUME 7.8 fl (7.5-11.1); MONO % 4.9 % (3.8-10.2); NEUT % 73.9 % (42.8-82.8); PLATELET COUNT 314 K/MM3 (134-434); RBC 4.64 M/mm3 (3.60-5.2); RDW 18.8 % (11.6-15.6); WHITE BLOOD COUNT 11.1 K/mm3 (4.0-10.0)
[2021-02-10 11:19] LABS: INR 0.88 (0.83-1.09); PROTHROMBIN TIME (PATIENT) 10.9 SEC (9.7-13.0)
[2021-02-10 11:22] LABS: ACTIVATED PTT 24.5 SECONDS (25.2-36.5)
[2021-02-10 11:23] LABS: CALCIUM 9.4 mg/dL (8.5-10.1)
[2021-02-10 11:24] LABS: BLOOD UREA NITROGEN 6.8 mg/dL (7-18)
[2021-02-10 11:27] LABS: CREATININE 0.5 mg/dL (0.55-1.3)
[2021-02-10] MEDS ORDERED: PCA PUMP NR ONE (11:27)
[2021-02-10] MEDS ORDERED: FENTANYL/BUPIVACAINE/NS/PF - PCEA - 50 ML DISP.SYRIN EP ONE (11:27)
[2021-02-10] MEDS ORDERED: OXYTOCIN 30 UNITS in 0.9% NS 30 UNIT/500 ML INFUS.BAG IVPB ONE (11:32)
[2021-02-10] MEDS ORDERED: BUPIVACAINE HCL/PF 0.25% (2.5MG/ML) 10 ML VIAL ONE (11:33)
[2021-02-10] MEDS ORDERED: NALOXONE HCL 0.4 MG/ML VIAL IVPUSH PRN (12:12)
[2021-02-10 12:14] LABS: ANISOCYTOSIS 3+; MACROCYTOSIS 0; PLATELET ESTIMATE NORMAL
[2021-02-10] MEDS ORDERED: FENTANYL/BUPIVACAINE/NS/PF - PCEA - 50 ML DISP.SYRIN EP SCH (12:15)
[2021-02-10] MEDS ORDERED: AMPICILLIN SODIUM 1 GM VIAL ONE (13:04)
[2021-02-10] MEDS: AMPICILLIN - 1 GM in SODIUM CHLORIDE 100 ML IVPB SCH ×2 (13:15→17:30)
[2021-02-10] MEDS ORDERED: METHYLERGONOVINE MALEATE 0.2 MG/1 ML AMP IM PRN (14:05)
[2021-02-10] MEDS ORDERED: BENZOCAINE 20% 57 GM BOTTLE TP PRN (14:05)
[2021-02-10] MEDS ORDERED: BISACODYL 10 MG SUPP.RECT RC PRN (14:05)
[2021-02-10] MEDS ORDERED: BENZOCAINE 28 GM HEMORRHOIDAL OINTMENT TP PRN (14:05)
[2021-02-10] MEDS ORDERED: WITCH HAZEL 50% (TUCKS) 40 PAD/JAR PAD TP PRN (14:05)
[2021-02-10] MEDS: IBUPROFEN 600 MG TABLET (FP) PO PRN ×2 (14:12→21:37)
[2021-02-10] MEDS: ACETAMINOPHEN 325 MG TABLET (FP) PO PRN ×2 (14:13→21:36)
[2021-02-10] MEDS ORDERED: IBUPROFEN 600 MG TABLET (FP) PO ONE (14:15)
[2021-02-10] MEDS ORDERED: ACETAMINOPHEN 325 MG TABLET (FP) ONE (14:15)
[2021-02-10] MEDS ORDERED: OXYTOCIN 20 UNITS in 0.9% NS 20 UNIT/1,000 ML INFUS.BAG IV SCH (14:15)
[2021-02-11] MEDS: ACETAMINOPHEN 325 MG TABLET (FP) PO PRN ×6 (00:55→23:40)
[2021-02-11] MEDS: IBUPROFEN 600 MG TABLET (FP) PO PRN ×6 (00:55→23:39)
[2021-02-11 08:18] LABS: BASO % 0.2 % (0-2.0); EOS % 1.5 % (0-4.5); HEMATOCRIT 27.5 % (32.4-45.2); HEMOGLOBIN 8.1 GM/dL (10.7-15.3); MCHC 29.5 g/dl (32.0-36.0); MEAN CELL VOLUME 66.3 fl (80-96); MEAN PLT VOLUME 8.1 fl (7.5-11.1); MONO % 4.9 % (3.8-10.2); NEUT % 71.4 % (42.8-82.8); PLATELET COUNT 267 K/MM3 (134-434); RBC 4.15 M/mm3 (3.60-5.2); RDW 19.1 % (11.6-15.6); WHITE BLOOD COUNT 11.1 K/mm3 (4.0-10.0)
[2021-02-11 08:24] LABS: MCH 19.6 pg (25.7-33.7)
[2021-02-11] MEDS: PRENATAL VITAMINS W/ FOLIC ACID TABLET (FP) PO SCH (09:23)
[2021-02-11] MEDS ORDERED: SENNOSIDES/DOCUSATE COMBO (SENNA PLUS) TABLET (UD) PO PRN (22:00)
[2021-02-12] MEDS: IBUPROFEN 600 MG TABLET (FP) PO PRN (08:19)
[2021-02-12] MEDS: ACETAMINOPHEN 325 MG TABLET (FP) PO PRN (08:20)
[2021-02-12 08:41] VITALS: BP 119/73; PULSE 86; TEMP 99
[2021-02-12] MEDS: PRENATAL VITAMINS W/ FOLIC ACID TABLET (FP) PO SCH (09:09)
== END 2021-02-12 12:10 | disposition home or self-care (01) | DRG 560 ==
LOC: JLDR 09:30 → J3W 15:40
PROVIDERS: ADMIT Obstetrics & Gynecology; ATTEND Obstetrics & Gynecology
PROC: 0W8NXZZ Division of Female Perineum, External Approach (ICD-10-PCS; principal; 2021-02-10)
PROC: 0HQ9XZZ Repair Perineum Skin, External Approach (ICD-10-PCS; 2021-02-10)
PROC: 10E0XZZ Delivery of Products of Conception, External Approach (ICD-10-PCS; 2021-02-10)
DX: O70.0 First degree perineal laceration during delivery (principal); O99.214 Obesity complicating childbirth; E66.01 Morbid (severe) obesity due to excess calories; O99.824 Streptococcus B carrier state complicating childbirth; Z3A.39 39 weeks gestation of pregnancy; Z37.0 Single live birth
CPT/HCPCS: 36415; 59409; 80048; 85025; 85610; 85730; 86850; 86900; 86901; C9803; U0003; U0005